=== PATIENT | male | born 1990 | race Caucasian/White ===

== ENCOUNTER → 2020-02-27 11:21 | Outpatient (BNVA) | payer OTHER, SELFPAY | PROVIDERS: PCP Nurse Practitioner Family; Visit Provider Surgery | DX: K44.9 Diaphragmatic hernia without obstruction or gangrene (principal); K21.9 Gastro-esophageal reflux disease without esophagitis; Z79.899 Other long term (current) drug therapy | CPT/HCPCS: 99202 ==

== ENCOUNTER → 2020-03-21 10:53 | Outpatient (BNVA) | payer OTHER, SELFPAY | PROVIDERS: PCP Nurse Practitioner Family; Visit Provider Physician Assistant | DX: Z76.89 Persons encountering health services in other specified circumstances (principal) ==

== ENCOUNTER 2020-04-03 10:58 | Outpatient (REF) | payer OTHER, SELFPAY ==
[2020-04-03 12:06] LABS: MANUAL DIFF FLAG NO
[2020-04-03 12:12] LABS: Basophils Absolute Auto 0.1 X10*3/uL (0.0-0.2); Basophils Percent Auto 0.8 % (0-2); Eosinophils Absolute Auto 0.2 X10*3/uL (0.0-0.4); Eosinophils Percent Auto 2.1 % (0-4); Hematocrit 43.1 % (42-52); Hemoglobin 14.3 g/dl (14.0-18.0); Imm Gran Abs Auto 0.02 X10*3/uL (0.00-0.03); Imm Gran Pct Auto 0.3 % (0.0-0.4); Lymphocytes Absolute Auto 3.5 X10*3/uL (1.2-4.9); Lymphocytes Percent Auto 45.5 % (20-40); Mean Corpuscular HGB Conc 33.2 g/dl (31.0-36.0); Mean Corpuscular Hemoglobin 30.4 pg (27.0-33.0); Mean Corpuscular Volume 91.7 fL (80-98); Mean Platelet Volume 10.2 fL (9.4-12.4); Monocytes Absolute Auto 0.6 X10*3/uL (0.1-1.2); Monocytes Percent Auto 7.6 % (2-11); Neutrophils Absolute Auto 3.4 X10*3/uL (2.0-8.3); Neutrophils Percent Auto 43.7 % (45-73); Platelet Count 345 X10*3/uL (160-400); White Blood Count 7.7 X10*3/uL (4.8-10.8)
[2020-04-03 12:41] LABS: Alanine Aminotransferase 23 U/L (0-40); Albumin Level 4.6 g/dL (3.5-5.0); Alkaline Phosphatase 79 U/L (39-117); Anion Gap 14 (12-20); Aspartate Amino Transferase 28 U/L (5-37); Bilirubin Total 0.5 mg/dL (0.0-1.0); Blood Urea Nitrogen 12 mg/dL (9-16); Calcium 9.8 mg/dL (8.4-10.2); Carbon Dioxide 26 mmol/L (22-29); Chloride 104 mmol/L (96-108); Estimated Glomerular Filt Rate > 60; Glucose Random 98 mg/dL (60-115); Potassium 4.2 mmol/l (3.3-5.1); Sodium 140 mmol/L (135-145); Total Protein 7.3 g/dL (6.5-8.0)
== END 2020-04-03 10:59 | disposition home or self-care (01) ==
LOC: HO.LAB 10:58
PROVIDERS: PCP Nurse Practitioner Family; Visit Provider Physician Assistant
DX: R74.01 Elevation of levels of liver transaminase levels (principal); R10.11 Right upper quadrant pain
CPT/HCPCS: 36415; 80053; 85025

== ENCOUNTER 2020-04-26 09:48 | Day surgery (SDC) | payer OTHER, SELFPAY ==
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
[2020-04-26 10:37] VITALS: BP 142/90; PULSE 71; RESP 18; TEMP 36.5; O2SAT 97; BMI 36.9
--- NOTE | 2020-04-26 10:55 | W.PM.OPN ---
Operative Note Operative Note Date of Service: 04/26/20 Narrative: Pre-op diagnosis: GERD, abdominal pain Post-op diagnosis: other (GERD, hiatal hernia, gastritis) Procedure: FLEXIBLE TRANSORAL UPPER GASTROINTESTINAL ENDOSCOPY WITH BIOPSIES Consent: Indications for the procedure and potential complications of bleeding, perforation, reaction to medications and missed diagnosis were discussed with the patient and informed consent was obtained. Instrument: Olympus GIF H 190 mid size upper endoscope Monitoring: Vital signs and clinical assessment, continuous EKG monitoring, Pulse oximetry, Carbon Dioxide monitoring and blood pressure monitoring were done throughout the procedure. Procedure: The patient was placed in the left lateral decubitis position and pre-procedure medications were administered and a bite block was placed. The endoscope was inserted into the mouth and advanced under direct vision to the third part of duodenum. A careful inspection was made as the upper endoscope was withdrawn including a retroflexed examination of the proximal stomach; Findings and interventions are described below. Findings: Larynx: Normal Esophagus: Circumferential folds in the mid esophagus - biopsied to check for EOE. GE junction at 38 cms, small hiatal hernia 38 to 40 cms. Two 1 cms tongues of suspected Christy - biopsied. Stomach: Mild gastric erythema. Biopsies were obtained. Grade 2 flap valve on retroflexed examination of the cardia. Duodenum: Normal bulb and descending duodenum Intervention: Biopsies as noted above Impression and Post Procedure Diagnosis: Endoscopy Findings: ESOPHAGUS: Circumferential folds in the mid esophagus - biopsied to check for EOE. GE junction at 38 cms, small hiatal hernia 38 to 40 cms. Two 1 cms tongues of suspected Christy - biopsied. STOMACH: Antral gastritis. Plan: Await pathology results. Add sucralfate twice daily for persistent symptoms despite esomeprazole twice daily. Patient to schedule a FU appointment in the GI Clinic with YOGESH Duckworth. Above findings were reviewed with the patient and GERD and Gastritis handouts were given in the discharge area Surgeon: Marc Hernández MD Anesthesia: MAC (Dr Lopez) Estimated blood loss (mL): 0 Pathology: other (A. gastric antrum, B. Distal esophagus, C. proximal esophagus) Condition: stable Disposition: PACU
--- NOTE | 2020-04-26 10:55 | MHC.SHP ---
Pre-Procedural Eval Section A The patient is an INPATIENT: No The History & Physical has been completed within 30 days and I have reviewed it.: No Section B Chief Complaint: reflux Details of Present Illness: GERD, abd pain, takes NSAIDS Relevant Family History (Specify if Yes): Yes Relevant Social History: None Present Medications: see Short Stay Collaborative assessment Medical History: Significant History (Bicuspid aortic valve Cervical stenosis of spinal canal Cubital tunnel syndrome Dyslipidemia Foraminal stenosis of cervical region GERD (gastroesophageal reflux disease) Hiatal hernia with gastroesophageal reflux Intractable migraine Lumbago with sciatica, right side Lumbar pain with radiation down ) History of Previous Operations: Relevant previous surgery/procedure and date(s) (Cubital tunnel syndrome on left Cubital tunnel syndrome on right H/O lumbar discectomy History of lumbar laminectomy History of tonsillectomy) Allergies: Allergies Allergy/AdvReac Type Severity Reaction Status Date / Time amoxicillin [Augmentin] Allergy Unknown rash; Verified 04/23/20 07:36 thoat swelled (childhood) clavulanic acid [Augmentin] Allergy Unknown rash; Verified 04/23/20 07:36 thoat swelled (childhood) Review of Systems Sugical H&P ROS: Negative: Constitution, Cardiovascular and Respiratory and Yes, Specify: Gastrointestinal (GERD, abdominal pain) Exam Surgical H&P Exam: Normal: Heart, Normal: Lungs, Normal: Extremities and Normal: Abdomen Plan Diagnosis/Plan: Unchanged I have reviewed the history and physical and performed a pertinent physical examination on my patient. No changes have occurred unless specified.
[2020-04-26] MEDS: Lactated Ringers 1,000 ML 100 ML IVCONT (11:07)
[2020-04-26 11:30] VITALS: BP 122/69; PULSE 70; RESP 16; TEMP 36.5; O2SAT 97
[2020-04-26 11:45] VITALS: BP 124/71; PULSE 61; RESP 20; TEMP 36.5; O2SAT 96
== END 2020-04-26 12:25 | disposition home or self-care (01) ==
PROVIDERS: PCP Nurse Practitioner Family; Visit Provider Internal Medicine Gastroenterology
PROC: 0DJ08ZZ Inspection of Upper Intestinal Tract, Via Natural or Artificial Opening Endoscopic (ICD-10-PCS; CPT 43235; principal; 2020-04-26 11:20)
DX: K21.9 Gastro-esophageal reflux disease without esophagitis (principal); R10.9 Unspecified abdominal pain; K29.70 Gastritis, unspecified, without bleeding; K44.9 Diaphragmatic hernia without obstruction or gangrene; Z79.1 Long term (current) use of non-steroidal anti-inflammatories (NSAID); Z88.0 Allergy status to penicillin
CPT/HCPCS: 43239; 88305; 88342; J3010

== ENCOUNTER → 2020-09-02 08:30 | Outpatient (BNVA) | payer OTHER, SELFPAY | PROVIDERS: PCP Nurse Practitioner Family; Visit Provider Physician Assistant ==

== ENCOUNTER → 2020-12-02 09:24 | Outpatient (BNVA) | payer OTHER, SELFPAY | PROVIDERS: PCP Nurse Practitioner Family; Visit Provider Physician Assistant ==

== ENCOUNTER 2021-12-15 11:16 | Outpatient (REF) | payer MEDICARE, OTHER, SELFPAY ==
[2021-12-15 16:40] LABS: Influenza A PCR NEGATIVE (Negative); Influenza B PCR NEGATIVE (Negative); Resp Syncy Virus RNA Qual PCR NEGATIVE (Negative); SARS COV2 PCR INHOUSE NEGATIVE (Negative)
== END 2021-12-15 11:17 | disposition home or self-care (01) ==
LOC: HO.LNP 11:16
PROVIDERS: Visit Provider Family Medicine
DX: J02.9 Acute pharyngitis, unspecified (principal); R09.81 Nasal congestion; Z20.822 Contact with and (suspected) exposure to COVID-19
CPT/HCPCS: 0241U

== ENCOUNTER 2022-04-01 17:22 | Emergency (ER) | payer MEDICARE, OTHER, SELFPAY ==
--- NOTE | ~2022-04-01 | CT_ITS ---
EXAMINATION: CT CERVICAL SPINE WITHOUT CONTRAST CLINICAL INFORMATION: Pain radiating to the left arm. COMPARISON: MR cervical spine 11/02/2019. TECHNIQUE: Contiguous axial imaging was performed of the cervical spine without IV contrast. Coronal and sagittal reformats were obtained at the acquisition workstation. This CT examination was performed using dose optimization techniques as appropriate, variously including the following: *Automated exposure control *Adjustment of mA and/or kV according to patient size (this includes techniques or standardized protocols for targeted exams where dose is matched to indication/reason for exam; i.e. extremities or head) *Use of iterative reconstruction technique DLP: 689 mGy-cm FINDINGS: The atlantooccipital and atlantoaxial articulations remain well aligned. Straightening of the normal cervical lordosis. Otherwise, there is anatomic alignment of the vertebral bodies and posterior elements. No evidence of acute fracture or subluxation. Again noted varying degrees of mild to moderate foraminal stenoses throughout the cervical spine with multilevel spinal canal stenosis secondary to spondylytic changes and congenital short pedicles, best characterized on the prior MR from 11/02/2019. There is no prevertebral soft tissue swelling. The thyroid gland and remaining cervical soft tissues are normal in appearance. There is a 2 mm nodule in the right apex (4:287) of uncertain significance. CT/CT cervical spine wo IV con IMPRESSION: 1. No acute cervical spine fracture or subluxation. 2. Redemonstration of varying degrees of mild to moderate foraminal stenosis and multilevel spinal canal stenosis secondary to spondylitic changes and congenitally short pedicles. For evaluation of myelopathy and cord signal abnormality correlation with an MR of the cervical spine is recommended if clinically deemed appropriate. 3. Incidental note is made of a 2 mm nodule in the right apex of uncertain significance. In patients younger than age 35, standard Fleischner Society recommendations for incidental pulmonary nodule follow-up do not apply as nodules in this age group are most likely to be infectious/inflammatory. Recommend clinical correlation with any risk factors to assess if follow-up of these nodules is clinically warranted.
[2022-04-01 17:30] VITALS: BP 144/80; PULSE 63; RESP 18; TEMP 36.7; O2SAT 98; BMI 36.6
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
--- NOTE | 2022-04-01 18:07 | ECG_ITS ---
Test Reason : NECK PAIN Blood Pressure : / mmHG Vent. Rate : 059 BPM Atrial Rate : 059 BPM P-R Int : 168 ms QRS Dur : 096 ms QT Int : 388 ms P-R-T Axes : 030 048 014 degrees QTc Int : 384 ms Sinus bradycardia Otherwise normal ECG No previous ECGs available Referred By: Darcie Lucas Electronically Signed By:CAROLEE REYNOSO MD
[2022-04-01] MEDS: diazePAM 2 MG TABLET 5 MG PO (18:25)
[2022-04-01 19:07] VITALS: BP 133/87; PULSE 59; RESP 20; TEMP 36.7; O2SAT 98
== END 2022-04-01 20:24 | disposition home or self-care (01) ==
PROVIDERS: Emergency Provider Emergency Medicine Emergency Medical Services; PCP Nurse Practitioner Family
DX: M48.02 Spinal stenosis, cervical region (principal)
CPT/HCPCS: 72125; 93005; 99284; 99285

== ENCOUNTER 2022-04-02 09:11 | Outpatient (REF) | payer MEDICARE, OTHER, SELFPAY ==
--- NOTE | 2022-04-02 09:20 | EMG_ITS ---
Bilateral median and ulnar motor and sensory studies were performed. Bilateral radial sensory studies were performed and paraspinal muscles were tested with a needle. IMPRESSION: This is an unremarkable study with no significant abnormality to suggest entrapment neuropathy or radiculopathy. MD NAYELY Espino/HETAL / [id number]
== END 2022-04-02 09:12 | disposition home or self-care (01) ==
LOC: HO.NEURO 09:11
PROVIDERS: PCP Nurse Practitioner Family; Visit Provider Nurse Practitioner Family
DX: M50.90 Cervical disc disorder, unspecified, unspecified cervical region (principal); R20.0 Anesthesia of skin
CPT/HCPCS: 95886; 95911

== ENCOUNTER 2022-07-19 19:37 | Emergency (ER) | payer MEDICARE, OTHER, SELFPAY ==
--- NOTE | ~2022-07-19 | XR_ITS ---
EXAMINATION: XR CHEST CLINICAL INFORMATION: Chest pain. Palpitations. COMPARISON: None available. TECHNIQUE: Frontal view of the chest was obtained. FINDINGS: Cardiomediastinal silhouette is normal. No abnormal tracheal deviation. The lungs are mildly hypoexpanded. No focal consolidation, changes of congestion, pleural effusions or pneumothorax are seen. Visualized osseous structures and upper abdomen are grossly unremarkable. XR/XR chest 1V IMPRESSION: Mildly hypoexpanded lungs. No acute pulmonary process.
[2022-07-19 19:39] VITALS: BP 128/75; PULSE 65; RESP 18; TEMP 36.6; O2SAT 97; BMI 38.7
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
--- NOTE | 2022-07-19 19:40 | ECG_ITS ---
Test Reason : CHEST PAIN Blood Pressure : / mmHG Vent. Rate : 062 BPM Atrial Rate : 062 BPM P-R Int : 148 ms QRS Dur : 100 ms QT Int : 386 ms P-R-T Axes : 026 048 011 degrees QTc Int : 391 ms Normal sinus rhythm Normal ECG When compared with ECG of 01-APR-2022 19:20, No significant change was found Referred By: Darcie Lucas Electronically Signed By:BERE SARGENT
[2022-07-19 20:09] LABS: Basophils Absolute Auto 0.1 X10*3/uL (0.0-0.2); Basophils Percent Auto 0.7 % (0-2); Eosinophils Absolute Auto 0.1 X10*3/uL (0.0-0.4); Eosinophils Percent Auto 1.3 % (0-4); Hematocrit 41.6 % (42.0-52.0); Hemoglobin 14.2 g/dl (14.0-18.0); Imm Gran Abs Auto 0.04 X10*3/uL (0.00-0.03); Imm Gran Pct Auto 0.4 % (0.0-0.4); Lymphocytes Absolute Auto 5.3 X10*3/uL (1.2-4.9); Lymphocytes Percent Auto 52.1 % (20-40); MANUAL DIFF FLAG SCAN; Mean Corpuscular HGB Conc 34.1 g/dl (31.0-36.0); Mean Corpuscular Hemoglobin 30.3 pg (27.0-33.0); Mean Corpuscular Volume 88.9 fL (80.0-98.0); Monocytes Absolute Auto 0.8 X10*3/uL (0.1-1.2); Monocytes Percent Auto 7.8 % (2-11); Neutrophils Absolute Auto 3.9 x10*3/uL (2.0-8.3); Neutrophils Percent Auto 37.7 % (45-73); Platelet Count 330 X10*3/uL (160-400); Red Blood Count 4.68 X10*6/uL (4.60-5.80); Red Cell Distribution Width 13.2 % (11.0-16.0); SCAN SMEAR FLAG 1; White Blood Count 10.2 X10*3/uL (4.8-10.8)
--- OUTSIDE RECORDS SUMMARY | 2022-07-19 20:14 | XMS_ITS | Continuity of Care Document ---
Author Name Unknown Organization [facility] ter Address [address] [place] [id number]- Care Team Providers Care Industrial Services Worker Name Role Phone Es JOHNSON, Jearld Ibarra Primary Care Physician Encounter [facility] Date(s): 06/14/21 - 06/14/[address] [address]- Discharge Disposition: A-D/C Home Attending Physician: Ritchie Wills MD Admitting Physician: Ritchie Wills MD Referring Physician: Not on Staff, Referring MD Allergies, Adverse Reactions, Alerts Substance Reaction Severity Status Augmentin throat swelled age 2 Active Medications baclofen 10 mg oral tablet 10 mg, 1, tablet, By Mouth, 3 times a day, # 90 tablet, Refills 1, Tot. Refills 1, Maintenance, 04/07/19 15:09:00 EST, [id number], 175.26, cm, 04/07/19 14:43:00 EST, Height, 113.1, kg, 02/23/19 13:30:... Start Date: 04/07/19 Stop Date: 06/06/19 Status: Ordered Esomeprazole Refills 0, Maintenance, 10/24/19 14:14:00 EDT Start Date: 10/24/19 Status: Ordered Lyrica 20 mg/mL oral solution 2.5 mL = 50 mg, By Mouth, 3 times a day, 0 Refills, Maintenance, 10/24/19 14:13:00 EDT Start Date: 10/24/19 Status: Ordered Paroxetine = 20 mg, By Mouth, Daily at bedtime, 0 Refills, Maintenance, 02/27/21 13:21:00 EST, Partial fill upon patient request if the prescription is for a schedule II opioid drug. Start Date: 02/27/21 Status: Ordered Sumatriptan = 100 mg, By Mouth, PRN as needed for migraine headache, 0 Refills, Maintenance, 10/14/17 14:55:25 EDT Start Date: 10/14/17 Status: Ordered Problem List Condition Effective Dates Status Health Status Inform ant Obese class II(Confirmed) Active Results Radiology Reports * Exam Date Time Procedure Performing Provider Status 06/14/21 7:13 PM Chest Portable Pat Orta; Auth (Verified) Notes: (Chest Portable) Reason For Exam: Shortness of Breath RESULT: Chest Portable Chest Portable Hx of Present Illness: SOB; Reason: Shortness of Breath; Clinical Question(s): Pneumonia COMPARISON: 03/04/2021. FINDINGS: LINES AND TUBES: None. LUNGS AND PLEURA: There is pulmonary vascular congestion. There are patchy opacities at the lower lung rodriguez. There is no evidence of a pneumothorax or pleural effusion. HEART, MEDIASTINUM AND NORMA: Heart is normal in size. Normal upper mediastinal and hilar contour. BONES AND SOFT TISSUES: No acute abnormality. IMPRESSION: Pulmonary vascular congestion with bilateral patchy opacities of the lower lung rodriguez which may represent atelectasis versus airspace disease. WSN: [id number] Ordering Physician: Ana M Elizondo Dictated By: Franci Garcia MD Dictated Date/Time: 06/14/21 7:18 pm Reviewed By: Franci Garcia MD Signed By: Franci Garcia MD Signed Date/Time: 06/14/21 7:18 pm Transcribed By: MACARIO Transcribed Date/Time: 06/14/21 7:16 pm Vital Signs Most recent to oldest [Reference Range]: 1 2 3 Oxygen Saturation [94-100 %] 98 % (06/14/21 8:24 PM) 98 % (06/14/21 5:46 PM) 99 % (06/14/21 5:41 PM) Pulse Rate [55-90 bpm] 75 bpm (06/14/21 8:24 PM) 96 bpm *H* (06/14/21 5:46 PM) 102 bpm *H* (06/14/21 5:41 PM) Blood Pressure [90-138/55-84 mm Hg] 108/65mm Hg (06/14/21 8:24 PM) 131/68mm Hg (06/14/21 5:46 PM) Respiratory Rate [16-30 br/min] 21 br/min (06/14/21 8:24 PM) 20 br/min (06/14/21 5:46 PM) Temperature [96.8-100.4 DegF] 99.8 DegF (06/14/21 8:24 PM) 102.4 DegF *H* (06/14/21 5:46 PM) Mode of Delivery (Oxygen) Room air (06/14/21 8:24 PM) Room air (06/14/21 5:46 PM) Room air (06/14/21 5:41 PM) Blood pressure sites Arm, right (06/14/21 8:24 PM) Arm, right (06/14/21 5:46 PM) Temperature Route Oral (06/14/21 8:24 PM) Oral (06/14/21 5:46 PM) Dry Weight 113.8 kg (06/14/21 8:24 PM) 113.8 kg (06/14/21 6:23 PM) 113.8 kg (06/14/21 5:46 PM) Dry Weight Obtained Via Patient/family s tated (06/14/21 5:46 PM) Social History Social History Type Response Smoking Status Never smoker entered on: 09/23/17 Sex Male
--- OUTSIDE RECORDS SUMMARY | 2022-07-19 20:14 | XMS_ITS | Continuity of Care Document ---
Author Name Unknown Organization [facility] ter Address [address] [place] [address]- Care Team Providers Care Hospital Coordinator Name Role Phone Es JOHNSON, Jerald Ibarra Primary Care Physician [phone] [place] [facility] [place]/23/[place] - 02/23/[address] [address]- [facility] Encounter Diagnosis Headache(Final) - 02/23/19 Discharge Disposition: A-D/C Home Attending Physician: Jeff García MD Admitting Physician: Jeff García MD Referring Physician: Not on Staff, Referring MD Allergies, Adverse Reactions, Alerts Substance Reaction Severity Status Augmentin throat swelled age 2 Active Medications amitriptyline 50 mg oral tablet 1 tablet = 50 mg, By Mouth, Daily at bedtime, # 30 tablet, 0 Refills, Maintenance, 10/14/17 14:56:14 EDT, Tablet Start Date: 10/14/17 Status: Ordered atorvastatin 20 mg oral tablet 1 tablet = 20 mg, By Mouth, Daily, # 30 tablet, 0 Refills, Maintenance, 02/03/19 13:44:06 EST, Tablet Start Date: 02/03/19 Status: Ordered baclofen 10 mg oral tablet 5 mg, 0.5, tablet, By Mouth, 3 times a day, start taking HS and gradually go up to tid, # 45 tablet, Refills 0, Tot. Refills 0, Maintenance, 02/03/19 13:59:56 EST, Route to Pharmacy Electronically, [id number], [facility] Start Date: 02/03/19 Stop Date: 03/05/19 Status: Ordered diclofenac sodium 50 mg oral delayed release tablet 1 tablet = 50 mg, By Mouth, 3 times a day, with food, # 90 tablet, 3 Refills, Maintenance, 02/03/1913:59:13 EST Start Date: 02/03/19 Stop Date: 06/03/19 Status: Ordered Fioricet Tablet By Mouth, Every 4 hours, 0 Refills, Maintenance, 02/03/19 13:44:58 EST Start Date: 02/03/19 Status: Ordered Omeprazole By Mouth, Daily, 0 Refills, Maintenance, 02/03/19 13:43:55 EST Start Date: 02/03/19 Status: Ordered oxyCODONE 5 mg oral tablet 5 mg, 1, tablet, By Mouth, Every 6 hours, PRN, # 5 tablet, Refills 0, Tot. Refills 0, Maintenance, for pain, 12/14/18 15:51:46 EDT, Route to Pharmacy Electronically, NCPDP_[id number], [facility], Partial fill upon patient request Start Date: 12/14/18 Status: Ordered Pantoprazole Daily, 0 Refills, Maintenance, 12/12/18 16:35:53 EDT Start Date: 12/12/18 Status: Ordered Sumatriptan = 100 mg, By Mouth, PRN as needed for migraine headache, 0 Refills, Maintenance, 10/14/17 14:55:25 EDT Start Date: 10/14/17 Status: Ordered topiramate 25 mg oral capsule, extended release 1 capsule = 25 mg, By Mouth, Daily, # 30 capsule, 0 Refills, Maintenance, 02/03/19 13:42:44 EST, ERCapsule Start Date: 02/03/19 Status: Ordered Tylenol 8 Hour Caplet = 1,300 mg, By Mouth, Every 8 hours, 0 Refills, Maintenance, 02/03/19 13:43:32 EST Start Date: 02/03/19 Status: Ordered Problem List No Known Problems Vital Signs Most recent to oldest [Reference Range]: 1 2 3 Weight 113.1 kg (02/23/19 1:30 PM) 113.1 kg (02/23/19 10:21 AM) Oxygen Saturation [94-100 %] 100 % (02/23/19 1:30 PM) 99 % (02/23/19 10:21 AM) 100 % (02/23/19 10:18 AM) Pulse Rate [55-90 bpm] 55 bpm (02/23/19 1:30 PM) 54 bpm *L* (02/23/19 10:21 AM) 78 bpm (02/23/19 10:18 AM) Blood Pressure [90-138/55-84 mm Hg] 123/75mm Hg (02/23/19 1:30 PM) 136/81mm Hg (02/23/19 10:21 AM) Respiratory Rate [16-30 br/min] 16 br/min (02/23/19 1:30 PM) 18 br/min (02/23/19 10:21 AM) Temperature [96.8-100.4 DegF] 98.5 DegF (02/23/19 1:30 PM) 98.3 DegF (02/23/19 10:21 AM) Mode of Delivery (Oxygen) Room air (02/23/19 1:30 PM) Room air (02/23/19 10:21 AM) Nasal cannula (02/23/19 10:18 AM) Blood pressure sites Arm, left (02/23/19 1:30 PM) Arm, right (02/23/19 10:21 AM) Temperature Route Oral (02/23/19 1:30 PM) Oral (02/23/19 10:21 AM) Dry Weight 113.1 kg (02/23/19 1:30 PM) 113.1 kg (02/23/19 10:21 AM) Social History Social History Type Response Smoking Status Never smoker entered on: 09/23/17 Sex Male
--- OUTSIDE RECORDS SUMMARY | 2022-07-19 20:14 | XMS_ITS | Continuity of Care Document ---
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 Refills 1, Maintenance, 04/07/19 15:09:00 EST, Route to Pharmacy Electronically, [facility] #[id number], 175.26, cm, 04/07/19 14:43:00 EST, Height, 113.1, kg, 02/23/19 13:30:... Start Date: 04/07/19 Stop Date: 06/06/19 Status: Ordered Fioricet Tablet By Mouth, Every 4 hours, 0 Refills, Maintenance, 02/03/19 13:44:58 EST Start Date: 02/03/19 Status: Ordered nabumetone 750 mg oral tablet 2 tablet = 1,500 mg, By Mouth, Daily, # 60 tablet, 1 Refills, Maintenance, 04/07/19 15:10:00 EST, Tablet, [facility] #[id number], 175.26, cm, 04/07/19 14:43:00 EST, Height, 113.1, kg, 02/23/19 13:30:00 EST, Dry Weight Start Date: 04/07/19 Status: Ordered Omeprazole By Mouth, Daily, 0 Refills, Maintenance, 02/03/19 13:43:55 EST Start Date: 02/03/19 Status: Ordered oxyCODONE 5 mg oral tablet 5 mg, 1, tablet, By Mouth, Every 6 hours, PRN, # 5 tablet, Refills 0, Tot. Refills 0, Maintenance, for pain, 12/14/18 15:51:46 EDT, Route to Pharmacy Electronically, NCPDP_[id number], [facility], Partial fill upon patient request Start Date: 12/14/18 Status: Ordered Pantoprazole Daily, 0 Refills, Maintenance, 12/12/18 16:35:53 EDT Start Date: 12/12/18 Status: Ordered Sumatriptan = 100 mg, By Mouth, PRN as needed for migraine headache, 0 Refills, Maintenance, 10/14/17 14:55:25 EDT Start Date: 10/14/17 Status: Ordered Topamax 50 mg oral tablet 1 tablet = 50 mg, By Mouth, 2 times a day, plese cancel the previous 25 mg script, # 60 tablet, 0 Refills, Maintenance, 06/15/19 9:39:00 EDT, Tablet, [facility] #[id number], 175.26, cm, 05/25/2009:52:00 EDT, Height, 113.1, kg, 02/23/19 13:30:00... Start Date: 06/15/19 Status: Ordered Tylenol 8 Hour Caplet = 1,300 mg, By Mouth, Every 8 hours, 0 Refills, Maintenance, 02/03/19 13:43:32 EST Start Date: 02/03/19 Status: Ordered zonisamide 25 mg oral capsule 1 capsule = 25 mg, By Mouth, 2 times a day, 0 Refills, Maintenance, 04/07/19 14:47:00 EST Start Date: 04/07/19 Status: Ordered Problem List No Chronic Problems Diagnosis Diagnosis Type Effective Dates Health Status Cl inical Service Informant Failed back syndrome of lumbar spine Discharge Diagnosis 06/15/19 Social History Social History Type Response Smoking Status Never smoker entered on: 09/23/17 Sex Male
--- OUTSIDE RECORDS SUMMARY | 2022-07-19 20:14 | XMS_ITS | Continuity of Care Document ---
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 Start Date: 04/07/19 Stop Date: 06/06/19 Status: Ordered Fioricet Tablet By Mouth, Every 4 hours, 0 Refills, Maintenance, 02/03/19 13:44:58 EST Start Date: 02/03/19 Status: Ordered nabumetone 750 mg oral tablet 2 tablet = 1,500 mg, By Mouth, Daily, # 60 tablet, 1 Refills, Maintenance, 04/07/19 15:10:00 EST, Tablet, [facility] #[id number], 175.26, cm, 04/07/19 14:43:00 EST, Height, 113.1, [...] 12/14/18 15:51:46 EDT, Route to Pharmacy Electronically, NCPDP_[id number], [facility], Partial fill upon patient [...] 0 Refills, Maintenance, 06/15/19 9:39:00 EDT, Tablet, [facility] #[id number], 175.26, cm, 05/25/2009:52:00 EDT, Height, 113.1, kg, [...] back syndrome of lumbar spine Discharge Diagnosis 07/18/19 Social History Social History Type Response Smoking Status Never smoker entered on: 09/23/17 Sex Male
--- OUTSIDE RECORDS SUMMARY | 2022-07-19 20:14 | XMS_ITS | Continuity of Care Document ---
Author Name Unknown Organization [facility] Address [address] [place] [address]- Care Team Providers Care E Business Manager Name Role Phone Jerald Suggs NP Primary Care Physician [place] [facility] [place] 05/26[place] - 06/02/19 [facility] [address] [place] [address]- [facility] Attending Physician: Hannah MAX, Jason Malone Referring Physician: Jerald Suggs NP Allergies, Adverse [...] 04/07/19 15:09:00 EST, Route to Pharmacy Electronically, [facility] #[id number], 175.26, cm, 04/07/19 14:43:00 EST, Height, 113.1, kg, 02/23/19 13:30:... Start Date: 04/07/19 Stop Date: 06/06/19 Status: Ordered Fioricet Tablet By Mouth, Every 4 hours, 0 Refills, Maintenance, 02/03/19 13:44:58 EST Start Date: 02/03/19 Status: Ordered nabumetone 750 mg oral tablet 2 tablet = 1,500 mg, By Mouth, Daily, # 60 tablet, 1 Refills, Maintenance, 04/07/19 15:10:00 EST, Tablet, [facility] #[id number], 175.26, cm, 04/07/19 14:43:00 EST, Height, 113.1, [...] 12/14/18 15:51:46 EDT, Route to Pharmacy Electronically, NCPDP_[id number], [facility], Partial fill upon patient request Start Date: 12/14/18 Status: Ordered Pantoprazole Daily, 0 Refills, Maintenance, 12/12/18 16:35:53 EDT Start Date: 12/12/18 Status: Ordered Sumatriptan = 100 mg, By Mouth, PRN as needed for migraine headache, 0 Refills, Maintenance, 10/14/17 14:55:25 EDT Start Date: 10/14/17 Status: Ordered Topamax 25 mg oral tablet 1 tablet = 25 mg, By Mouth, 2 times a day, 1 po qhs x 7 days then bid., # 60 tablet, 3 Refills, Maintenance, 05/26/19 15:19:00 EDT, [facility] #[id number], 175.26, cm, 05/26/19 10:52:00 EDT, Height, 113.1, kg, 02/23/19 13:30:00 EST, Dry Weight Start Date: 05/26/19 Status: Ordered topiramate 25 mg oral capsule, [...] Date: 04/07/19 Status: Ordered Problem List No Known Problems Vital Signs Most recent to oldest [Reference Range]: 1 Height 175.26 cm (05/26/19 10:52 AM) Weight 112.1 kg (05/26/19 10:52 AM) Oxygen Saturation [94-100 %] 98 % (05/26/19 10:52 AM) Pulse Rate [55-90 bpm] 86 bpm (05/26/19 10:52 AM) Body Mass Index [18.5-24.99] 36.5 *>HHI* (05/26/19 10:52 AM) Blood Pressure [90-138/55-84 mm Hg] 143/ 81mm Hg *H* (05/26/19 10:52 AM) Temperature [96.8-100.4 DegF] 98.3 DegF (05/26/19 10:52 AM) Blood pressure sites Arm, left (05/26/19 10:52 AM) Temperature Route Temporal (05/26/19 10:52 AM) Social History Social History Type Response Smoking Status Never smoker entered on: 09/23/17 Sex Male
--- OUTSIDE RECORDS SUMMARY | 2022-07-19 20:14 | XMS_ITS | Continuity of Care Document ---
Author Name Unknown Organization [facility] Jeannette sridhar Address [address] [place] [address] ve [address] [place] [address]- Care Team Providers Care Casing Builder Name Role Phone Es JOHNSON, Jerald Ibarra Primary Care Physician [place] [facility] [place]26/19 [facility] [address] [place] [address]- [facility] Attending Physician: Brook MAX, Pacheco Malone Allergies, Adverse Reactions, Alerts Substance Reaction Severity [...] 04/07/19 15:09:00 EST, Route to Pharmacy Electronically, [facility] #[id number], 175.26, cm, 04/07/19 14:43:00 EST, Height, 113.1, kg, 02/23/19 13:30:... Start Date: 04/07/19 Stop Date: 06/06/19 Status: Ordered Fioricet Tablet By Mouth, Every 4 hours, 0 Refills, Maintenance, 02/03/19 13:44:58 EST Start Date: 02/03/19 Status: Ordered nabumetone 750 mg oral tablet 2 tablet = 1,500 mg, By Mouth, Daily, # 60 tablet, 1 Refills, Maintenance, 04/07/19 15:10:00 EST, Tablet, [facility] #[id number], 175.26, cm, 04/07/19 14:43:00 EST, Height, 113.1, [...] 12/14/18 15:51:46 EDT, Route to Pharmacy Electronically, NCPDP_[id number], [facility], Partial fill upon patient [...] 0 Refills, Maintenance, 06/15/19 9:39:00 EDT, Tablet, [facility] #[id number], 175.26, cm, 05/25/2009:52:00 EDT, Height, 113.1, kg, [...] Status: Ordered Problem List No Known Problems Social History Social History Type Response Smoking Status Never smoker entered on: 09/23/17 Sex Male
--- OUTSIDE RECORDS SUMMARY | 2022-07-19 20:14 | XMS_ITS | Continuity of Care Document ---
Author Name Unknown Organization [facility] ter Address [address] [place] [address]- Care Team Providers Care Permanent Waver Name Role Phone Es JOHNSON, Jerald Ibarra Primary Care Physician [phone] [place] [facility] [place]/05/21 - 03/06/[address] [address]- Discharge Disposition: A-D/C Home Attending Physician: Tye Parra MD Admitting Physician: Joce Saunders MD Referring Physician: Not on Staff, Referring MD Allergies, Adverse Reactions, Alerts Substance Reaction Severity Status Augmentin throat swelled age 2 Active Medications acetaminophen-oxyCODONE 325 mg-5 mg oral tablet 2, tablet, By Mouth, Every 4 hours, PRN, # 30 tablet, Refills 0, Tot. Refills 0, Acute, Pain , Moderate, 03/10/21 11:44:00 EST, 03/03/21 11:44:00 EST, Route to Pharmacy Electronically, [facility], Partial fill upon patient request... Start Date: 03/03/21 Stop Date: 03/10/21 Status: Ordered baclofen 10 mg oral tablet 10 mg, 1, tablet, By Mouth, 3 times a day, # 90 tablet, Refills 1, Tot. Refills 1, Maintenance, 04/07/19 15:09:00 EST, Route to Pharmacy Electronically, [facility] #[id number], 175.26, cm, 04/07/19 14:43:00 EST, Height, 113.1, kg, 02/23/19 13:30:... Start Date: 04/07/19 Stop Date: 06/06/19 Status: Ordered Dilaudid 2 mg oral tablet 1 mg, Tablet, By Mouth, Every 4 hours, PRN for Pain , Severe, Routine, 03/06/21 10:12:00 EST Start Date: 03/06/21 Stop Date: 03/07/21 Status: Discontinued Dilaudid 2 mg oral tablet 0.5 tablet = 1 mg, By Mouth, Every 6 hours, PRN Pain , Severe, for 4 days, # 8 tablet, 0 Refills, Acute 03/10/21 12:09:00 EST, 03/06/21 12:09:00 EST, Tablet, [facility] #[id number], Partial fillupon patient request if the prescription is for a s... Start Date: 03/06/21 Stop Date: 03/10/21 Status: Ordered docusate-senna 50 mg-187 mg oral tablet 2 tablet, By Mouth, 2 times a day, PRN Constipation, for 7 days, # 20 tablet, 0 Refills, Acute 03/13/21 12:08:00 EST, 03/06/21 12:08:00 EST, Tablet, [facility] #[id number], Partial fill upon patient request if the prescription is for a schedule I... Start Date: 03/06/21 Stop Date: 03/13/21 Status: Ordered Esomeprazole Refills 0, Maintenance, 10/24/19 14:14:00 EDT Start Date: 10/24/19 Status: Ordered Lyrica 20 mg/mL oral solution 2.5 mL = 50 mg, By Mouth, 3 times a day, 0 Refills, Maintenance, 10/24/19 14:13:00 EDT Start Date: 10/24/19 Status: Ordered MiraLax oral powder for reconstitution = 17 Gm, By Mouth, Daily, PRN Constipation, for 7 days, dissolve in water before taking, # 527 Gm, 0 Refills, Acute 03/13/21 12:08:00 EST, 03/06/21 12:08:00 EST, REC Powder, [facility] #[id number], Partial fill upon patient request if the prescri... Start Date: 03/06/21 Stop Date: 03/13/21 Status: Ordered oxyCODONE 5 mg oral tablet 5 mg, Tablet, By Mouth, Every 6 hours, PRN for Pain , Mild, Routine, 03/05/21 7:48:00 EST Start Date: 03/05/21 Stop Date: 03/07/21 Status: Discontinued Paroxetine = 20 mg, By Mouth, Daily [...] Exam Date Time Procedure Performing Provider Status 03/04/21 11:42 PM Thoracic Spine 2 Views Rachel Garay; Auth (Verified) Notes: (Thoracic Spine 2 Views) Reason For Exam: With Pain;Localization Films RESULT: Thoracic Spine 2 Views Thoracic Spine 2 Views Hx of Present Illness: Pt c o cervical thoracic spine radiating to b l ribs, worsening with movement and respiration s p laminectomy and spinal cord stimulator insertion yesterday. Finds relief by lying on side.; Reason: Localization Films; With Pain; Clinical Question(s): Position Fixation; new spi nal stimulator. Confirming placement. COMPARISON: None. FINDINGS: No bone lesions or fractures. Normal disc configuration. Pulmonary findings are better characterized on concurrently obtained chest radiograph. Posterior spinal stimulator noted at the level of T9-T10. IMPRESSION: No acute fracture or dislocation. Pulmonary findings are better characterized on concurrently obtained chest chest radiograph. Posterior spinal stimulator noted at the level of T9-T10. I have personally reviewed the images and I agree with this report. WSN: [id number] Ordering Physician: Harry Wall Dictated By: Magdy Cosme DO Dictated Date/Time: 03/04/21 11:49 p Reviewed By: Maico Perry MD Signed By: Maico Perry MD Signed Date/Time: 03/04/21 11:54 pm Transcribed By: MACARIO Transcribed Date/Time: 03/04/21 11:49 pm * Exam Date Time Procedure Performing Provider Status 03/04/21 11:42 PM Lumbar Spine 2 or 3 Views Aisha Arauz; Auth (Verified) Notes: (Lumbar Spine 2 or 3 Views) Reason For Exam: with Pain;Localization Films RESULT: Lumbar Spine 2 or 3 Views Lumbar Spine 2 Views Hx of Present Illness: Pt c o cervical thoracic spine radiating to b l ribs, worsening with movement and respiration s p laminectomy and spinal cord stimulator insertion yesterday. Finds relief by lying on side.; Reason: Localization Films; with Pain; Clinical Question(s): Position Fixation; new spi nal stimulator. Confirming placement. COMPARISON: MRI lumbar spine 08/11/2019. FINDINGS: No bone lesions or fractures. Normal disc configuration. Normal alignment. No spondylolysis or spondylolisthesis. Mild stool retention throughout the visualized colon. Partially visualized thoracic spinal stimulator with the battery pack in the posterior left subcutaneous tissue. IMPRESSION: No acute fracture or dislocation. I have personally reviewed the images and I agree with this report. WSN: [id number] Ordering Physician: Harry Wall Dictated By: Magdy Cosme DO Dictated Date/Time: 03/04/21 11:49 p Reviewed By: Maico Perry MD Signed By: Maico Perry MD Signed Date/Time: 03/04/21 11:54 pm Transcribed By: MACARIO Transcribed Date/Time: 03/04/21 11:47 pm * Exam Date Time Procedure Performing Provider Status 03/04/21 11:42 PM Chest 2 Views Frontal and Lat Wanda Arauz; Auth (Verified) Notes: (Chest 2 Views Frontal and Lat) Reason For Exam: Pain;Other: RESULT: Chest 2 Views Frontal and Lat Chest 2 Views Frontal and Lat Hx of Present Illness: Pt c o cervical thoracic spine radiating to b l ribs, worsening with movement and respiration s p laminectomy and spinal cord stimulator insertion yesterday. Finds relief by lying on side.; Reason: Other:; Pain; Clinical Question(s): Other:; Fracture, pneumothorax, pulmonary contusion COMPARISON: 09/17/2015 FINDINGS: Patchy airspace disease in the left lower lobe. Right infrahilar airspace disease. IMPRESSION: Left lower lobe and right infrahilar airspace disease could be secondary to atelectasis but cannot exclude bilateral lower lobe pneumonia WSN: [id number] Ordering Physician: Harry Wall Dictated By: Rodríguez Barraza MD Dictated Date/Time: 03/04/21 11:46 p Reviewed By: Rodríguez Barraza MD Signed By: Rodríguez Barraza MD Signed Date/Time: 03/04/21 11:46 pm Transcribed By: MACARIO Transcribed Date/Time: 03/04/21 11:45 pm Vital Signs Most recent to oldest [Reference Range]: 1 2 3 Height 175.26 cm (03/06/21 12:10 PM) 175.26 cm (03/06/21 8:28 AM) 175.26 cm (03/06/21 5:20 AM) Weight 122.1 kg (03/05/21 5:49 AM) 122.1 kg (03/05/21 4:53 AM) Oxygen Saturation [94-100 %] 98 % (03/06/21 12:10 PM) 97 % (03/06/21 8:28 AM) 96 % (03/06/21 5:20 AM) Pulse Rate [55-90 bpm] 82 bpm (03/06/21 12:10 PM) 76 bpm (03/06/21 8:28 AM) 88 bpm (03/06/21 5:20 AM) Body Mass Index [18.5-24.99] 39.75 *>HHI* (03/05/21 5:49 AM) Blood Pressure [90-138/55-84 mm Hg] 111/69mm Hg (03/06/21 12:10 PM) 128/78mm Hg (03/06/21 8:28 AM) 109/68mm Hg (03/06/21 5:20 AM) Respiratory Rate [16-30 br/min] 18 br/min (03/06/21 1:58 PM) 18 br/min (03/06/21 12:10 PM) 16 br/min (03/06/21 10:21 AM) Temperature [96.8-100.4 DegF] 97.8 DegF (03/06/21 12:10 PM) 97.5 DegF (03/06/21 8:28 AM) 98.5 DegF (03/06/21 5:20 AM) Liters per Minute 3 L/min (03/05/21 5:49 AM) 3 L/min (03/05/21 4:53 AM) 2 L/min (03/05/21 3:46 AM) Mode of Delivery (Oxygen) Room air (03/06/21 12:10 PM) Room air (03/06/21 8:28 AM) Room air (03/06/21 5:20 AM) Blood pressure sites Arm, left (03/06/21 12:10 PM) Arm, left (03/06/21 8:28 AM) Arm, left (03/06/21 5:20 AM) Temperature Route Temporal (03/06/21 12:10 PM) Temporal (03/06/21 8:28 AM) Temporal (03/06/21 5:20 AM) Dry Weight 122.1 kg (03/05/21 5:49 AM) Social History Social History Type Response Smoking Status Never smoker entered on: 09/23/17 Sex Male
--- OUTSIDE RECORDS SUMMARY | 2022-07-19 20:14 | XMS_ITS | Continuity of Care Document ---
Author Name Unknown Organization [facility] ter Address [address] [place] [address]- Care Team Providers Care Marketing Proposal Specialist Name Role Phone Es JOHNSON, Jerald Ibarra Primary Care Physician En[place] [facility] [place] Date(s): 03/06/21 - 04/05/[address] [address]- Attending Physician: Not on Staff, Attending MD Admitting Physician: Not on Staff, Admitting MD Referring Physician: Not on Staff, Referring MD Allergies, Adverse Reactions, Alerts Substance Reaction Severity Status Augmentin throat swelled age 2 Active Medications baclofen 10 mg oral tablet 10 mg, 1, tablet, By Mouth, 3 times a day, # 90 tablet, Refills 1, Tot. Refills 1, Maintenance, 04/07/19 15:09:00 EST, [id number], 175.26, cm, 04/07/19 14:43:00 EST, Height, 113.1, [...] Status Inform ant Obese class II(Confirmed) Active Social History Social History Type Response Smoking Status Never smoker entered on: 09/23/17 Sex Male
--- OUTSIDE RECORDS SUMMARY | 2022-07-19 20:14 | XMS_ITS | Continuity of Care Document ---
Author Name Unknown Organization [facility] Jeannette sridhar Address [address] [place], [place] [address]i ve [address] [place] [address]- Care Team Providers Care Juice Packaging Machines Setter Name Role Phone Es JOHNSON, Jerald Ibarra Primary Care Physician [place] [facility] [place](s): 08/18/19 - 11/05/19 [facility] [address] [place] [address]- [facility] Attending Physician: Pacheco Doe MD Referring Physician: Jerald Suggs NP Allergies, Adverse [...] 04/07/19 15:09:00 EST, Route to Pharmacy Electronically, [facility] #[id number], 175.26, cm, 04/07/19 14:43:00 EST, Height, 113.1, kg, 02/23/19 13:30:... Start Date: 04/07/19 Stop Date: 06/06/19 Status: Ordered Citalopram By Mouth, Daily, 0 Refills, Maintenance, 10/24/19 14:14:00 EDT Start Date: 10/24/19 Status: Ordered Esomeprazole Refills 0, Maintenance, 10/24/19 14:14:00 EDT Start Date: 10/24/19 Status: Ordered Fioricet Tablet By Mouth, Every 4 hours, 0 Refills, Maintenance, 02/03/19 13:44:58 EST Start Date: 02/03/19 Status: Ordered Lyrica 20 mg/mL oral solution 2.5 mL = 50 mg, By Mouth, 3 times a day, 0 Refills, Maintenance, 10/24/19 14:13:00 EDT Start Date: 10/24/19 Status: Ordered nabumetone 750 mg oral tablet 2 tablet = 1,500 mg, By Mouth, Daily, # 60 tablet, 1 Refills, Maintenance, 04/07/19 15:10:00 EST, Tablet, [facility] #[id number], 175.26, cm, 04/07/19 14:43:00 EST, Height, 113.1, [...] 12/14/18 15:51:46 EDT, Route to Pharmacy Electronically, NCPDP_[id number], [facility], Partial fill upon patient [...] 0 Refills, Maintenance, 06/15/19 9:39:00 EDT, Tablet, [facility][id number], 175.26, cm, 05/25/2009:52:00 EDT, Height, 113.1, kg, [...]
--- OUTSIDE RECORDS SUMMARY | 2022-07-19 20:14 | XMS_ITS | Continuity of Care Document ---
Author Name Unknown Organization [facility] Address [address] [place] [address]- Care Team Providers Care Track Layer Name Role Phone Es JOHNSON, Jerald Ibarra Primary Care Physician [place] [facility] [place] 12/10/19 [facility] [address] [place] [address] [facility] Attending Physician: Jerald Morales MD Admitting Physician: Jerald Morales MD Referring Physician: Jerald Morales MD Allergies, Adverse Reactions, Alerts Substance Reaction [...] 04/07/19 15:09:00 EST, Route to Pharmacy Electronically, [facility] #[id number], 175.26, cm, 04/07/19 14:43:00 EST, Height, 113.1, [...] 1 Refills, Maintenance, 04/07/19 15:10:00 EST, Tablet, [facility] #77413, 175.26, cm, 04/07/19 14:43:00 EST, Height, 113.1, [...] 12/14/18 15:51:46 EDT, Route to Pharmacy Electronically, NCPDP_[id number], [facility], Partial fill upon patient [...] 0 Refills, Maintenance, 06/15/19 9:39:00 EDT, Tablet, [facility]40515, 175.26, cm, 05/25/2009:52:00 EDT, Height, 113.1, kg, [...]
--- OUTSIDE RECORDS SUMMARY | 2022-07-19 20:14 | XMS_ITS | Continuity of Care Document ---
Author Name Unknown Organization [facility] ter Address [address] [place] [address]- Care Team Providers Care Resource Recovery Specialist Name Role Phone Es JOHNSON, Jerald Ibarra Primary Care Physician [phone] Encounter [facility] [place] Date(s): 10/10/21 - 12/11/[address] [address] Attending Physician: Tania Fuentes Admitting Physician: Tania Fuentes Referring Physician: Tania Fuentes Allergies, Adverse Reactions, Alerts Substance Reaction Severity Status Augmentin throat swelled age 2 Active Medications baclofen 10 mg oral tablet 10 mg, 1, tablet, By Mouth, 3 times a day, # 90 tablet, Refills 1, Tot. Refills 1, Maintenance, 04/07/19 15:09:00 EST, Route to Pharmacy Electronically, [facility] #[id number], 175.26, cm, 04/07/19 14:43:00 EST, Height, 113.1, [...] Date: 10/14/17 Status: Ordered Problem List Condition Confirmation Course Effective Dates Status Health St atus Informant Obese class II Confirmed Active Social History Social History Type Response Smoking Status Never smoker entered on: 09/23/17 Sex Male Patient Care team information Personnel Name: Es JOHNSON , Jerald Ibarra Address: Address: [address] [place] [address]
--- OUTSIDE RECORDS SUMMARY | 2022-07-19 20:14 | XMS_ITS | Continuity of Care Document ---
Author Name Unknown Organization [facility] ter Address [address] [place] [address]- Care Team Providers Care Software Integrator Name Role Phone Es JOHNSON, Jerald Ibarra Primary Care Physician Encounter [facility] [place] Date(s): 03/03/21 - 03/03/[address] [address]- Discharge Disposition: A-D/C Home Attending Physician: Ranjith Dolan MD Admitting Physician: Ranjith Dolan MD Referring Physician: Ranjith Dolan MD Allergies, Adverse Reactions, Alerts Substance Reaction Severity Status Augmentin throat swelled age 2 Active Medications acetaminophen-oxyCODONE 325 mg-5 mg oral tablet 2, tablet, By Mouth, Every 4 hours, PRN, # 30 tablet, Refills 0, Tot. Refills 0, Acute, Pain , Moderate, 03/10/21 11:44:00 EST, 03/03/21 11:44:00 EST, Route to Pharmacy Electronically, [facility]t, Partial fill upon patient request... Start Date: 03/03/21 Stop Date: 03/10/21 Status: Ordered baclofen 10 mg oral tablet 10 mg, 1, tablet, By Mouth, 3 times a day, # 90 tablet, Refills 1, Tot. Refills 1, Maintenance, 04/07/19 15:09:00 EST, Route to Pharmacy Electronically, [facility] #[id number], 175.26, cm, 04/07/19 14:43:00 EST, Height, 113.1, [...] 1 Refills, Maintenance, 04/07/19 15:10:00 EST, Tablet, [facility] #78507, 175.26, cm, 04/07/19 14:43:00 EST, Height, 113.1, kg, 02/23/19 13:30:00 EST, Dry Weight Start Date: 04/07/19 Status: Ordered oxyCODONE 5 mg oral tablet 5 mg, 1, tablet, By Mouth, Every 6 hours, PRN, # 5 tablet, Refills 0, Tot. Refills 0, Maintenance, for pain, 12/14/18 15:51:46 EDT, Route to Pharmacy Electronically, NCPDP_[id number], [facility], Partial fill upon patient request Start Date: 12/14/18 Status: Ordered Paroxetine = 20 mg, By Mouth, Daily at bedtime, 0 Refills, Maintenance, 02/27/21 13:21:00 EST, Partial fill upon patient request if the prescription is for a schedule II opioid drug. Start Date: 02/27/21 Status: Ordered Percocet-5/325 325 mg-5 mg oral tablet 2 tablet, Tablet, By Mouth, Every 4 hours, May take less, PRN for Pain , Moderate, Routine, 03/03/21 12:14:00 EST Start Date: 03/03/21 Stop Date: 03/10/21 Status: Ordered Sumatriptan = 100 mg, By Mouth, PRN as needed for migraine headache, 0 Refills, Maintenance, 10/14/17 14:55:25 EDT Start Date: 10/14/17 Status: Ordered Problem List Condition Effective Dates Status Health Status Inform ant Obese class II(Confirmed) Active Procedures Procedure Date Related Diagnosis Body Site Status Laminectomy for implantation of neurostimulator electrodes, plate/paddle, epidural Completed Vital Signs Most recent to oldest [Reference Range]: 1 2 3 Height 175.26 cm (03/03/21 10:53 AM) 175.26 cm (02/27/21 1:51 PM) Weight 113.64 kg (03/03/21 10:53 AM) 113.64 kg (02/27/21 1:51 PM) Oxygen Saturation [94-100 %] 97 % (03/03/21 3:15 PM) 99 % (03/03/21 3:00 PM) 97 % (03/03/21 2:45 PM) Pulse Rate [55-90 bpm] 73 bpm (03/03/21 10:53 AM) Body Mass Index [18.5-24.99] 37 *>HHI* (03/03/21 10:53 AM) 37 *>HHI* (02/27/21 1:51 PM) Blood Pressure [90-138/55-84 mm Hg] 133/90mm Hg (03/03/21 3:15 PM) 133/90mm Hg (03/03/21 3:00 PM) 138/88mm Hg (03/03/21 2:45 PM) Respiratory Rate [16-30 br/min] 16 br/min (03/03/21 3:15 PM) 16 br/min (03/03/21 2:30 PM) 16 br/min (03/03/21 2:29 PM) Temperature [96.8-100.4 DegF] 97.0 DegF (03/03/21 3:15 PM) 97.0 DegF (03/03/21 1:46 PM) 98.5 DegF (03/03/21 10:53 AM) Liters per Minute 2 L/min (03/03/21 2:15 PM) 5 L/min (03/03/21 1:46 PM) Mode of Delivery (Oxygen) Room air (03/03/21 3:15 PM) Room air (03/03/21 3:00 PM) Room air (03/03/21 2:45 PM) Blood pressure sites Arm, right (03/03/21 3:15 PM) Arm, right (03/03/21 2:45 PM) Arm, right (03/03/21 2:30 PM) Temperature Route Temporal (03/03/21 3:15 PM) Temporal (03/03/21 1:46 PM) Temporal (03/03/21 10:53 AM) Dry Weight 113.64 kg (02/27/21 1:51 PM) Dry Weight Obtained Via Patient/family s tated (02/27/21 1:51 PM) Social History Social History Type Response Smoking Status Never smoker entered on: 09/23/17 Sex Male
--- OUTSIDE RECORDS SUMMARY | 2022-07-19 20:14 | XMS_ITS | Continuity of Care Document ---
Author Name Unknown Organization [facility] Jeannette sridhar Address [address] [place] [address] [address] [place] [address]- Care Team Providers Care Security Dispatcher Name Role Phone Es JOHNSON, Jerald Ibarra Primary Care Physician [phone] [place] [facility] [place] 10/19/19 [facility] [address] [place] [address]- [facility] Attending Physician: Admakhil, Angelo Admitting Physician: AdmtrAngelo Referring Physician: Admtr, Ar8 Allergies, Adverse Reactions, Alerts Substance Reaction Severity [...] 04/07/19 15:09:00 EST, Route to Pharmacy Electronically, [facility] #[id number], 175.26, cm, 04/07/19 14:43:00 EST, Height, 113.1, kg, 02/23/19 13:30:... Start Date: 04/07/19 Stop Date: 06/06/19 Status: Ordered Fioricet Tablet By Mouth, Every 4 hours, 0 Refills, Maintenance, 02/03/19 13:44:58 EST Start Date: 02/03/19 Status: Ordered nabumetone 750 mg oral tablet 2 tablet = 1,500 mg, By Mouth, Daily, # 60 tablet, 1 Refills, Maintenance, 04/07/19 15:10:00 EST, Tablet, [facility] #31838, 175.26, cm, 04/07/19 14:43:00 EST, Height, 113.1, [...] 12/14/18 15:51:46 EDT, Route to Pharmacy Electronically, NCPDP_[id number], [facility], Partial fill upon [...] 0 Refills, Maintenance, 06/15/19 9:39:00 EDT, Tablet, [facility] #29907, 175.26, cm, 05/25/2009:52:00 EDT, Height, 113.1, kg, [...]
--- OUTSIDE RECORDS SUMMARY | 2022-07-19 20:14 | XMS_ITS | Continuity of Care Document ---
Author Name Unknown Organization [facility] Address [address] [place] [address], [address] [place] [address]- Care Team Providers Care Binder Chainstitch Name Role Phone Es JOHNSON, Jerald Ibarra Primary Care Physician [phone] Encounter [facility] Date(s): 11/27/19 - 12/27/19 [facility] [address] [place] [address], [address] [place] [address]- [facility] Attending Physician: Admakhil, Angelo Admitting Physician: [...] 04/07/19 15:09:00 EST, Route to Pharmacy Electronically, [facility] #[id number], 175.26, cm, 04/07/19 14:43:00 EST, Height, 113.1, [...] 1 Refills, Maintenance, 04/07/19 15:10:00 EST, Tablet, [facility] #34965, 175.26, cm, 04/07/19 14:43:00 EST, Height, 113.1, [...] 12/14/18 15:51:46 EDT, Route to Pharmacy Electronically, NCPDP_[id number], [facility], Partial fill upon patient [...] 0 Refills, Maintenance, 06/15/19 9:39:00 EDT, Tablet, [facility], 175.26, cm, 05/25/2009:52:00 EDT, Height, 113.1, kg, [...]
--- OUTSIDE RECORDS SUMMARY | 2022-07-19 20:14 | XMS_ITS | Continuity of Care Document ---
Author Name Unknown Organization [facility] Jeannette sridhar Address [address] [place] [address] ve [address] [place] [address]- Care Team Providers Care Sr Solutions Consultant Name Role Phone Es JOHNSON, Jerald Ibarra Primary Care Physician [place] [facility] [place]18[place] 11/05/19 [facility] [address] [place] [address]- [facility] Attending Physician: Pacheco Doe MD Referring Physician: [...] 04/07/19 15:09:00 EST, Route to Pharmacy Electronically, [facility] #[id number], 175.26, cm, 04/07/19 14:43:00 EST, Height, 113.1, [...] 1 Refills, Maintenance, 04/07/19 15:10:00 EST, Tablet, [facility] #60348, 175.26, cm, 04/07/19 14:43:00 EST, Height, 113.1, [...] 12/14/18 15:51:46 EDT, Route to Pharmacy Electronically, NCPDP_[id number], [facility], Partial fill upon patient [...] 0 Refills, Maintenance, 06/15/19 9:39:00 EDT, Tablet, [facility]77163, 175.26, cm, 05/25/2009:52:00 EDT, Height, 113.1, kg, [...]
--- OUTSIDE RECORDS SUMMARY | 2022-07-19 20:14 | XMS_ITS | Continuity of Care Document ---
Author Name Unknown Organization [facility] Address [address] [place] [address] [address], [address] [place] [address]- Care Team Providers Care Boot Turner Name Role Phone Es JOHNSON, Jerald Ibarra Primary Care Physician [phone] [place] [facility] [place]21 - 10/22/21 [facility] [address] [place] [address] Drive, [address] [place] [address]- Allergies, Adverse Reactions, Alerts Substance Reaction Severity Status Augmentin throat swelled age 2 Active Medications baclofen 10 mg oral tablet 10 mg, 1, tablet, By Mouth, 3 times a day, # 90 tablet, Refills 1, Tot. Refills 1, Maintenance, 04/07/19 15:09:00 EST, Route to Pharmacy Electronically, [facility] #[id number], 175.26, cm, 04/07/19 14:43:00 EST, Height, 113.1, [...]
--- OUTSIDE RECORDS SUMMARY | 2022-07-19 20:14 | XMS_ITS | Continuity of Care Document ---
Author Name Unknown Organization [facility] Address [address] [place] [address], [address] [place] [address]- Care Team Providers Care House Decorator Name Role Phone Es JOHNSON, Jerald Ibarra Primary Care Physician Encounter [facility] [place] Date(s): 11/27/19 - 12/04/19 [facility] [address] [place] [address], [address] [place] [address]- [facility] Attending Physician: Stephanie Horner MD Allergies, Adverse Reactions, Alerts Substance Reaction [...] 04/07/19 15:09:00 EST, Route to Pharmacy Electronically, [facility][id number], 175.26, cm, 04/07/19 14:43:00 EST, Height, 113.1, [...] 1 Refills, Maintenance, 04/07/19 15:10:00 EST, Tablet, [facility] #32909, 175.26, cm, 04/07/19 14:43:00 EST, Height, 113.1, [...] 12/14/18 15:51:46 EDT, Route to Pharmacy Electronically, NCPDP_[id number], [facility], Partial fill upon patient request [...] 0 Refills, Maintenance, 06/15/19 9:39:00 EDT, Tablet, [facility] #89448, 175.26, cm, 05/25/2009:52:00 EDT, Height, 113.1, kg, [...]
--- OUTSIDE RECORDS SUMMARY | 2022-07-19 20:14 | XMS_ITS | Continuity of Care Document ---
Author Name Unknown Organization [facility] Jeannette sridhar Address [address] [place] [address] [address] [place] [address]- Care Team Providers Care Director Radio Name Role Phone Es JOHNSON, Jerald Ibarra Primary Care Physician [phone] Encounter [facility] Date(s): 10/06/19 - 11/05/19 [facility] [address] [place] [address]- [facility] Attending Physician: Angelo Meraz Admitting Physician: AdmtrAngelo Referring Physician: Admtr ArLyssa Allergies, Adverse Reactions, Alerts Substance Reaction Severity [...] 04/07/19 15:09:00 EST, Route to Pharmacy Electronically, [facility] #[id number], 175.26, cm, 04/07/19 14:43:00 EST, Height, 113.1, [...] 1 Refills, Maintenance, 04/07/19 15:10:00 EST, Tablet, [facility] #98937, 175.26, cm, 04/07/19 14:43:00 EST, Height, 113.1, [...] 12/14/18 15:51:46 EDT, Route to Pharmacy Electronically, NCPDP_[id number], [facility], Partial fill upon patient [...] 0 Refills, Maintenance, 06/15/19 9:39:00 EDT, Tablet, [facility][id number], 175.26, cm, 05/25/2009:52:00 EDT, Height, 113.1, kg, [...]
--- OUTSIDE RECORDS SUMMARY | 2022-07-19 20:14 | XMS_ITS | Continuity of Care Document ---
Author Name Unknown Organization [facility] Address [address] [place] [address]- Care Team Providers Care Project Internship Name Role Phone Es JOHNSON, Jerald Ibarra Primary Care Physician Encounter [facility] [place] Date(s): 07/18/19 - 08/17/19 [facility] [address] [place] [address] [facility] Attending Physician: Angelo Meraz Admitting Physician: Angelo Meraz Referring Physician: Angelo Meraz Allergies, Adverse Reactions, Alerts Substance Reaction Severity [...] 04/07/19 15:09:00 EST, Route to Pharmacy Electronically, [facility] #[id number], 175.26, cm, 04/07/19 14:43:00 EST, Height, 113.1, kg, 02/23/19 13:30:... Start Date: 04/07/19 Stop Date: 06/06/19 Status: Ordered Fioricet Tablet By Mouth, Every 4 hours, 0 Refills, Maintenance, 02/03/19 13:44:58 EST Start Date: 02/03/19 Status: Ordered nabumetone 750 mg oral tablet 2 tablet = 1,500 mg, By Mouth, Daily, # 60 tablet, 1 Refills, Maintenance, 04/07/19 15:10:00 EST, Tablet, [facility] #43876, 175.26, cm, 04/07/19 14:43:00 EST, Height, 113.1, [...] 12/14/18 15:51:46 EDT, Route to Pharmacy Electronically, NCPDP_[id number], [facility], Partial fill upon patient [...] 0 Refills, Maintenance, 06/15/19 9:39:00 EDT, Tablet, [facility] #77701, 175.26, cm, 05/25/2009:52:00 EDT, Height, 113.1, kg, [...]
--- OUTSIDE RECORDS SUMMARY | 2022-07-19 20:14 | XMS_ITS | Continuity of Care Document ---
Author Name Unknown Organization [facility] Address [address] [place] [address], [address] [place] [address]- Care Team Providers Care Receiving And Processing Supervisor Name Role Phone Es JOHNSON, Jerald Ibarra Primary Care Physician Encounter [facility] Date(s): 10/24/19 - 10/31/19 [facility] [address] [place] [address], [address] [place] [address]- [facility] Attending Physician: Stephanie Horner MD Referring Physician: Jerald Suggs NP Allergies, [...] 04/07/19 15:09:00 EST, Route to Pharmacy Electronically, [facility] #[id number], 175.26, cm, 04/07/19 14:43:00 EST, Height, 113.1, [...] 1 Refills, Maintenance, 04/07/19 15:10:00 EST, Tablet, [facility] #17585, 175.26, cm, 04/07/19 14:43:00 EST, Height, 113.1, [...] 12/14/18 15:51:46 EDT, Route to Pharmacy Electronically, NCPDP_[id number], [facility], Partial fill upon [...] 0 Refills, Maintenance, 06/15/19 9:39:00 EDT, Tablet, [facility] #29174, 175.26, cm, 05/25/2009:52:00 EDT, Height, 113.1, kg, [...] oldest [Reference Range]: 1 Height 175.26 cm (10/24/19 2:10 PM) Mode of Delivery (Oxygen) Room air (10/24/19 2:10 PM) Blood pressure sites Arm, right (10/24/19 2:10 PM) Temperature Route Temporal (10/24/19 2:10 PM) Weight Obtained Via Standing scale (10/24/19 2:10 PM) Social History Social History Type Response Smoking Status Never smoker entered on: 09/23/17 Sex Male
--- OUTSIDE RECORDS SUMMARY | 2022-07-19 20:14 | XMS_ITS | Continuity of Care Document ---
Author Name Unknown Organization [facility] Address [address] [place] [address]- Care Team Providers Care Operations Expert Name Role Phone Es JOHNSON, Jerald Ibarra Primary Care Physician [place] [facility] [place]29[place]19 - 12/29/19 [facility] [address] [place] [address] [facility] Attending Physician: Angelo Meraz Admitting Physician: AdmtrAngelo [...] 04/07/19 15:09:00 EST, Route to Pharmacy Electronically, [facility] #[id number], 175.26, cm, 04/07/19 14:43:00 EST, Height, 113.1, [...] 1 Refills, Maintenance, 04/07/19 15:10:00 EST, Tablet, [facility] #06768, 175.26, cm, 04/07/19 14:43:00 EST, Height, 113.1, [...] 12/14/18 15:51:46 EDT, Route to Pharmacy Electronically, NCPDP_[id number], [facility], Partial fill upon patient request [...] 0 Refills, Maintenance, 06/15/19 9:39:00 EDT, Tablet, [facility]87796, 175.26, cm, 05/25/2009:52:00 EDT, Height, 113.1, kg, [...]
--- OUTSIDE RECORDS SUMMARY | 2022-07-19 20:14 | XMS_ITS | Continuity of Care Document ---
Author Name Unknown Organization [facility] Address [address] [place] [address] [address], [address] [place] [address]- Care Team Providers Care Head Of Product Name Role Phone Jerald Suggs NP Primary Care Physician [phone] [place] [facility] [id number] Date(s): 05/26/19 - 06/28/19 [facility] [address] [place] [address] Drive, [address] [place] [address]- [facility] Attending Physician: Blanche MAX, Ranjith Lamb Referring Physician: Jerald Suggs NP Allergies, Adverse [...] 04/07/19 15:09:00 EST, Route to Pharmacy Electronically, [facility] #72624, 175.26, cm, 04/07/19 14:43:00 EST, Height, 113.1, kg, 02/23/19 13:30:... Start Date: 04/07/19 Stop Date: 06/06/19 Status: Ordered Fioricet Tablet By Mouth, Every 4 hours, 0 Refills, Maintenance, 02/03/19 13:44:58 EST Start Date: 02/03/19 Status: Ordered nabumetone 750 mg oral tablet 2 tablet = 1,500 mg, By Mouth, Daily, # 60 tablet, 1 Refills, Maintenance, 04/07/19 15:10:00 EST, Tablet, [facility] #68083, 175.26, cm, 04/07/19 14:43:00 EST, Height, 113.1, [...] 12/14/18 15:51:46 EDT, Route to Pharmacy Electronically, NCPDP_[id number], [facility], Partial fill upon patient [...] 0 Refills, Maintenance, 06/15/19 9:39:00 EDT, Tablet, [facility] #15794, 175.26, cm, 05/25/2009:52:00 EDT, Height, 113.1, kg, [...]
--- OUTSIDE RECORDS SUMMARY | 2022-07-19 20:14 | XMS_ITS | Continuity of Care Document ---
Author Name Unknown Organization [facility] Address [address] [place] [id number]- Care Team Providers Care Grader Marker Name Role Phone Es JOHNSON, Jerald Ibarra Primary Care Physician [phone] [place] [facility] [place]): [place]07/19 - 04/14/19 [facility] [address] [place] [phone]- [facility] Encounter Diagnosis Myofascial pain syndrome(Discharge Diagnosis) - 04/07/19 Lumbar radiculitis(Discharge Diagnosis) - 04/07/19 Attending Physician: Nehemias Lopez MD Referring Physician: Jerald Suggs NP Allergies, [...] 04/07/19 15:09:00 EST, Route to Pharmacy Electronically, [facility] #[id number], 175.26, cm, 04/07/19 14:43:00 EST, Height, 113.1, kg, 02/23/19 13:30:... Start Date: 04/07/19 Stop Date: 06/06/19 Status: Ordered Fioricet Tablet By Mouth, Every 4 hours, 0 Refills, Maintenance, 02/03/19 13:44:58 EST Start Date: 02/03/19 Status: Ordered nabumetone 750 mg oral tablet 2 tablet = 1,500 mg, By Mouth, Daily, # 60 tablet, 1 Refills, Maintenance, 04/07/19 15:10:00 EST, Tablet, [facility] #[id number], 175.26, cm, 04/07/19 14:43:00 EST, Height, 113.1, [...] 12/14/18 15:51:46 EDT, Route to Pharmacy Electronically, NCPDP_[id number], [facility], Partial fill upon [...] Diagnosis Diagnosis Type Effective Dates Health Status Clinical Service Informant Myofascial pain syndrome Discharge Diagnosis 04/07/19 Lumbar radiculitis Discharge Diagnosis 04/07/19 Vital Signs Most recent to oldest [Reference Range]: 1 Height 175.26 cm (04/07/19 2:43 PM) Weight 111.8 kg (04/07/19 2:43 PM) Oxygen Saturation [94-100 %] 98 % (04/07/19 2:43 PM) Pulse Rate [55-90 bpm] 91 bpm *H* (04/07/19 2:43 PM) Body Mass Index [18.5-24.99] 36.4 *>HHI* (04/07/19 2:43 PM) Blood Pressure [90-138/55-84 mm Hg] 148/ 84mm Hg *H* (04/07/19 2:43 PM) Temperature [96.8-100.4 DegF] 98.9 DegF (04/07/19 2:43 PM) Blood pressure sites Arm, left (04/07/19 2:43 PM) Temperature Route Temporal (04/07/19 2:43 PM) Social History Social History Type Response Smoking Status Never smoker entered on: 09/23/17 Sex Male
--- OUTSIDE RECORDS SUMMARY | 2022-07-19 20:14 | XMS_ITS | Continuity of Care Document ---
Author Name Unknown Organization [facility] Address [address] [place] [phone]- Care Team Providers Care Publications Inspector Name Role Phone Es JOHNSON, Jerald Ibarra Primary Care Physician [place] [facility] [place] 12[place]22/19 [facility] [address] [place] [address]- [facility] Attending Physician: Angelo Meraz Admitting Physician: AdmtrAngelo Referring Physician: Admtr, Ar8 [...] 04/07/19 15:09:00 EST, Route to Pharmacy Electronically, [facility] #[id number], 175.26, cm, 04/07/19 14:43:00 EST, Height, 113.1, [...] 1 Refills, Maintenance, 04/07/19 15:10:00 EST, Tablet, [email or web address] #[id number], 175.26, cm, 04/07/19 14:43:00 EST, Height, 113.1, [...] 12/14/18 15:51:46 EDT, Route to Pharmacy Electronically, NCPDP_[id number], [facility], Partial fill upon patient request [...] 0 Refills, Maintenance, 06/15/19 9:39:00 EDT, Tablet, [facility] #[id number], 175.26, cm, 05/25/2009:52:00 EDT, Height, 113.1, kg, [...]
--- OUTSIDE RECORDS SUMMARY | 2022-07-19 20:14 | XMS_ITS | Continuity of Care Document ---
Author Name Unknown Organization [facility] Address [address] [place] [address] [address], [address] [place] [address]- Care Team Providers Care Unemployment Insurance Director Name Role Phone Es JOHNSON, Jerald Ibarra Primary Care Physician [place] [facility] [place]19 [facility] [address] [place] [address] Drive, [address] [place] [address]- [facility] Attending Physician: Blanche MAX, Ranjith Lamb Allergies, Adverse Reactions, Alerts Substance Reaction Severity [...] 04/07/19 15:09:00 EST, Route to Pharmacy Electronically, [facility] #[id number], 175.26, cm, 04/07/19 14:43:00 EST, Height, 113.1, kg, 02/23/19 13:30:... Start Date: 04/07/19 Stop Date: 06/06/19 Status: Ordered Fioricet Tablet By Mouth, Every 4 hours, 0 Refills, Maintenance, 02/03/19 13:44:58 EST Start Date: 02/03/19 Status: Ordered nabumetone 750 mg oral tablet 2 tablet = 1,500 mg, By Mouth, Daily, # 60 tablet, 1 Refills, Maintenance, 04/07/19 15:10:00 EST, Tablet, [facility] #[id number], 175.26, cm, 04/07/19 14:43:00 EST, Height, 113.1, [...] 12/14/18 15:51:46 EDT, Route to Pharmacy Electronically, NCPDP_[id number], [facility], [...] 0 Refills, Maintenance, 06/15/19 9:39:00 EDT, Tablet, [facility] #[id number], 175.26, cm, 05/25/2009:52:00 EDT, Height, 113.1, kg, [...]
--- OUTSIDE RECORDS SUMMARY | 2022-07-19 20:14 | XMS_ITS | Continuity of Care Document ---
Author Name Unknown Organization [facility] Address [address] [place] [address]- Care Team Providers Care Awning Craftsperson Name Role Phone Es JOHNSON, Jerald Ibarra Primary Care Physician [phone] Encounter 03/07/21 - 04/02/21 [facility] [address] [place] [address]- Discharge Disposition: GOALS MET Allergies, Adverse Reactions, Alerts Substance Reaction Severity Status Augmentin throat swelled age 2 Active Medications baclofen 10 mg oral tablet 10 mg, 1, tablet, By Mouth, 3 times a day, # 90 tablet, Refills 1, Tot. Refills 1, Maintenance, 04/07/19 15:09:00 EST, Route to Pharmacy Electronically, [facility] #[id number], 175.26, cm, 04/07/19 14:43:00 EST, Height, 113.1, [...]
--- OUTSIDE RECORDS SUMMARY | 2022-07-19 20:14 | XMS_ITS | Continuity of Care Document ---
Author Name Unknown Organization [facility] Address [address] [place] [address]- Care Team Providers Care Property Supervisor Name Role Phone Jerald Suggs NP Primary Care Physician Encounter [facility] [place] [id number] Date(s): 04/11/19 - 07/09/19 [facility] [address] [place] [address]- [facility] Attending Physician: Hannah MAX, Jason Malone Referring [...] 04/07/19 15:09:00 EST, Route to Pharmacy Electronically, [facility] #[id number], 175.26, cm, 04/07/19 14:43:00 EST, Height, 113.1, kg, 02/23/19 13:30:... Start Date: 04/07/19 Stop Date: 06/06/19 Status: Ordered Fioricet Tablet By Mouth, Every 4 hours, 0 Refills, Maintenance, 02/03/19 13:44:58 EST Start Date: 02/03/19 Status: Ordered nabumetone 750 mg oral tablet 2 tablet = 1,500 mg, By Mouth, Daily, # 60 tablet, 1 Refills, Maintenance, 04/07/19 15:10:00 EST, Tablet, [facility] #[id number], 175.26, cm, 04/07/19 14:43:00 EST, Height, 113.1, [...] 12/14/18 15:51:46 EDT, Route to Pharmacy Electronically, NCPDP_[id number], [facility], Partial fill upon [...] 0 Refills, Maintenance, 06/15/19 9:39:00 EDT, Tablet, [facility] #[id number], 175.26, cm, 05/25/2009:52:00 EDT, Height, 113.1, kg, [...]
--- OUTSIDE RECORDS SUMMARY | 2022-07-19 20:14 | XMS_ITS | Continuity of Care Document ---
Author Name Unknown Organization [facility] Address [address] [place] [address] [address], [address] [place] [address]- Care Team Providers Care Pet Ambassador Name Role Phone Es JOHNSON, Jerald Ibarra Primary Care Physician [phone] Encounter [facility] Date(s): 08/02/19 - 09/01/[address], [address] [place] [address]- [facility] Attending Physician: Admakhil, Angelo Admitting Physician: AdmtrAngelo [...] 04/07/19 15:09:00 EST, Route to Pharmacy Electronically, [facility] #[id number], 175.26, cm, 04/07/19 14:43:00 EST, Height, 113.1, kg, 02/23/19 13:30:... Start Date: 04/07/19 Stop Date: 06/06/19 Status: Ordered Fioricet Tablet By Mouth, Every 4 hours, 0 Refills, Maintenance, 02/03/19 13:44:58 EST Start Date: 02/03/19 Status: Ordered nabumetone 750 mg oral tablet 2 tablet = 1,500 mg, By Mouth, Daily, # 60 tablet, 1 Refills, Maintenance, 04/07/19 15:10:00 EST, Tablet, [facility][id number], 175.26, cm, 04/07/19 14:43:00 EST, Height, 113.1, [...] 12/14/18 15:51:46 EDT, Route to Pharmacy Electronically, NCPDP_[id number], [facility], Partial fill upon patient request [...] 0 Refills, Maintenance, 06/15/19 9:39:00 EDT, Tablet, [facility] #[id number], 175.26, cm, 05/25/2009:52:00 EDT, Height, 113.1, kg, [...]
[2022-07-19 20:16] LABS: INTERNATIONAL NORM RATIO 0.9 (0.9-1.1); Prothrombin Time 10.7 SEC (10.0-13.1)
--- NOTE | 2022-07-19 20:31 | PC.NURSE ---
Pt [id number]&Ox44, reports 4/10 intermittent substernal chest pain radiating to left sided collar bone and down into left arm. States pain feels like tightness . Pt placed on bedside monitor, HR 58 NSR, EKG obtained and reviewed by provider. IV line placed and blood work collected and sent to lab.
[2022-07-19 20:39] LABS: Alanine Aminotransferase 25 U/L (0-40); Albumin Level 4.5 g/dL (3.5-5.0); Alkaline Phosphatase 74 U/L (39-117); Anion Gap 13 (12-20); Aspartate Amino Transferase 39 U/L (5-37); Bilirubin Direct 0.1 mg/dL (0.0-0.5); Bilirubin Total 0.7 mg/dL (0.0-1.0); Blood Urea Nitrogen 15 mg/dL (9-16); Calcium 9.7 mg/dL (8.4-10.2); Carbon Dioxide 24 mmol/L (22-29); Chloride 105 mmol/L (96-108); Creatinine Clr Calc Pharmacy 126.1; Estimated Glomerular Filt Rate > 60; Glucose Random 78 mg/dL (60-115); Sodium 138 mmol/L (135-145); Total Protein 7.1 g/dL (6.5-8.0); Troponin-I High Sensitivity < 2.7 ng/L (<3.5-35.0)
[2022-07-19 20:41] LABS: SLIDE REVIEW VERIFIED
[2022-07-19 20:51] LABS: TSH reflex Free T4 3.74 uIU/mL (0.32-4.0)
[2022-07-19 21:51] LABS: D Dimer High Sensitivity < 150 NG/ML
== END 2022-07-19 23:41 | disposition home or self-care (01) ==
PROVIDERS: Physician Assistant; Emergency Provider Student in an Organized Health Care Education/Training Program; PCP Nurse Practitioner Family
DX: R07.89 Other chest pain (principal); R00.2 Palpitations; R06.02 Shortness of breath; Z79.899 Other long term (current) drug therapy
CPT/HCPCS: 36415; 71045; 80048; 80076; 83735; 84443; 84484; 85025; 85379; 85610; 93005; 99284; 99285

== ENCOUNTER 2022-07-20 13:31 | Outpatient (REF) | payer MEDICARE, OTHER, SELFPAY ==
[2022-07-20 14:30] LABS: MANUAL DIFF FLAG NO
[2022-07-20 15:11] LABS: Basophils Absolute Auto 0.1 X10*3/uL (0.0-0.2); Eosinophils Absolute Auto 0.1 X10*3/uL (0.0-0.4); Eosinophils Percent Auto 1.4 % (0-4); Hematocrit 42.2 % (42.0-52.0); Hemoglobin 14.1 g/dl (14.0-18.0); Imm Gran Abs Auto 0.04 X10*3/uL (0.00-0.03); Imm Gran Pct Auto 0.6 % (0.0-0.4); Lymphocytes Absolute Auto 3.3 X10*3/uL (1.2-4.9); Mean Corpuscular HGB Conc 33.4 g/dl (31.0-36.0); Mean Corpuscular Hemoglobin 30.3 pg (27.0-33.0); Mean Corpuscular Volume 90.6 fL (80.0-98.0); Mean Platelet Volume 10.7 fL (9.4-12.4); Monocytes Absolute Auto 0.6 X10*3/uL (0.1-1.2); Monocytes Percent Auto 7.8 % (2-11); Neutrophils Absolute Auto 3.1 x10*3/uL (2.0-8.3); Neutrophils Percent Auto 43.2 % (45-73); Platelet Count 332 X10*3/uL (160-400); Red Blood Count 4.66 X10*6/uL (4.60-5.80); Red Cell Distribution Width 13.3 % (11.0-16.0); White Blood Count 7.2 X10*3/uL (4.8-10.8)
[2022-07-20 15:28] LABS: B Type Natriuretic Peptide < 10 pg/mL (<100)
[2022-07-20 15:32] LABS: Alanine Aminotransferase 23 U/L (0-40); Albumin Level 4.3 g/dL (3.5-5.0); Alkaline Phosphatase 75 U/L (39-117); Anion Gap 10 (12-20); Aspartate Amino Transferase 35 U/L (5-37); Bilirubin Total 0.6 mg/dL (0.0-1.0); Blood Urea Nitrogen 14 mg/dL (9-16); Calcium 9.6 mg/dL (8.4-10.2); Carbon Dioxide 25 mmol/L (22-29); Chloride 108 mmol/L (96-108); Estimated Glomerular Filt Rate > 60; Glucose Random 97 mg/dL (60-115); Potassium 4.1 mmol/L (3.3-5.1); Rheumatoid Factor < 13.0 IU/mL (<15.0); Sodium 139 mmol/L (135-145); Total Protein 6.8 g/dL (6.5-8.0)
[2022-07-20 15:48] LABS: TSH reflex Free T4 1.75 uIU/mL (0.32-4.0)
[2022-07-20 15:58] LABS: Erythrocyte Sedimentation Rate 5 MM/HR (0-15)
[2022-07-22 15:18] LABS: Cyclic Citrullinated Peptide <16 UNITS
[2022-07-23 15:49] LABS: A. Phagocytphilium DNA,RT-PCR NOT DETECTED (NOT DETECTED); Babesia Microti DNA, RT-PCR NOT DETECTED (NOT DETECTED); Borrelia Miyamotoi,DNA RT-PCR NOT DETECTED (NOT DETECTED); E.Chaffeensis DNA RT-PCR NOT DETECTED (NOT DETECTED); Lyme(Borrelia ssp)DNA RT-PCR NOT DETECTED (NOT DETECTED)
[2022-07-24 14:28] LABS: Antibody to SS-A Antigen <1.0 NEG AI (<1.0 NEG); Antibody to SS-B Antigen <1.0 NEG AI (<1.0 NEG)
[2022-07-26 16:18] LABS: DNAds, Crithidia Antibody Negative (Negative)
[2022-07-27 15:14] LABS: Anti Nuclear Antibody Pattern Nuclear, Speckled; Anti Nuclear Antibody Screen POSITIVE (NEGATIVE); Anti Nuclear Antibody Titer 1:40 titer
== END 2022-07-20 13:32 | disposition home or self-care (01) ==
LOC: HO.HMGCLDS 13:31
PROVIDERS: PCP Nurse Practitioner Family; Visit Provider Nurse Practitioner Family
DX: R00.2 Palpitations (principal); R52 Pain, unspecified; R53.83 Other fatigue; R22.43 Localized swelling, mass and lump, lower limb, bilateral
CPT/HCPCS: 36415; 80053; 83880; 84443; 85025; 85652; 86038; 86039; 86140; 86200; 86235; 86255; 86431; 87798; 87801

== ENCOUNTER 2022-07-22 12:57 | Outpatient (REF) | payer MEDICARE, OTHER, SELFPAY ==
--- NOTE | ~2022-07-22 | CT_ITS ---
EXAMINATION: CT CHEST WITHOUT CONTRAST CLINICAL INFORMATION: Abnormal lung findings on diagnostic imaging. COMPARISON: Chest x-ray 07/19/2022. CT cervical spine 04/01/2022. TECHNIQUE: Multidetector volumetric CT imaging of the chest was done. Axial MIP volume rendering provided. Sagittal and coronal reformatted images were obtained. This CT examination was performed using dose optimization techniques as appropriate, variously including the following: *Automated exposure control. *Adjustment of mA and/or kV according to patient size (this includes techniques or standardized protocols for targeted exams where dose is matched to indication/reason for exam; i.e. extremities or head). *Use of iterative reconstruction technique. DLP: 245 mGy-cm FINDINGS: OVEN TENDER: Well expanded lungs. LUNGS: The lungs are well expanded and clear of acute pneumonic process. There is a 2 mm subpleural nodule right middle lobe, axial image 376/5, 2 mm nodule right lung apex image 84/5. There are scattered 1 mm calcified nodules in the lingula, right middle lobe and right upper lobe. A 3 mm nodule is seen in the right minor fissure on axial image 28/4 probably a lymph node. There is focal atelectatic changes in the lingula. MEDIASTINUM: The thyroid lobes are symmetrical and normal. The central trachea and the bronchi are widely patent. Heart size and the great vessels are normal caliber. No abnormal size mediastinal or hilar lymph nodes seen. CORONARY ARTERY CALCIFICATION: None visualized on this study. PLEURA: There is no pleural effusion. No pleural mass or thickening. AXILLA: There is no abnormal axillary lymph nodes. UPPER ABDOMEN: Visualized liver, spleen, pancreas and bilateral adrenal glands are unremarkable. No radiopaque gallstone seen. OSSEOUS STRUCTURES: No aggressive lytic or sclerotic process seen. There are neurostimulator in the posterior epidural space lower dorsal spine. CT/CT chest wo IV con IMPRESSION: 1. Scattered 1 to 2 mm calcified and noncalcified pulmonary nodules. Previously visualized 2 mm nodule right lung apex is stable. 2. No abnormal mediastinal or axillary lymph nodes seen. 3. No acute consolidation. There is focal atelectasis in the lingula. Fleischner guidelines were followed.
--- NOTE | 2022-07-22 13:42 | HM_ITS ---
Conclusion: 1. Patient was monitored for total period of 3 days and 15 minutes 2. Baseline was normal sinus with average heart of 81 beats per minute 3. Two pauses greater than 2.5 seconds noted with longest pause of 2.8 seconds happening at 06:11 am on day 2 4. No significant ectopy noted 5. Patient reported 6 events that correlated with sinus tachycardia with symptoms waiting from feeling dizzy and short of breath or chest pain or lightheaded episodes MTDD
== END 2022-07-22 12:58 | disposition home or self-care (01) ==
LOC: HO.CT 12:57
PROVIDERS: PCP Nurse Practitioner Family; Visit Provider Nurse Practitioner Family
DX: R00.2 Palpitations (principal); R93.89 Abnormal findings on diagnostic imaging of other specified body structures
CPT/HCPCS: 71250; 93242

== ENCOUNTER 2022-08-03 09:51 | Outpatient (REF) | payer MEDICARE, OTHER, SELFPAY ==
--- NOTE | 2022-08-03 10:50 | PFT_ITS ---
Forced vital capacity 112%, FEV1 118%, FEV1 over FVC ratio is 85. CWF65-84 139% and MVV 107%. Post bronchodilator therapy, there is no change. Total lung capacity 104%. Residual volume is 69%. DLCO 84%. CONCLUSION: 1. Normal pulmonary function test. 2. No evidence of obstructive and restrictive pulmonary disorder. 3. No response to bronchodilator therapy. 4. Reduced residual volume is probably due to extraneous obesity. Ana Muñoz MD MSB/MODL / [id number]
== END 2022-08-03 09:52 | disposition home or self-care (01) ==
LOC: HO.RESP 09:51
PROVIDERS: PCP Nurse Practitioner Family; Visit Provider Nurse Practitioner Family
DX: R06.02 Shortness of breath (principal); R39.89 Other symptoms and signs involving the genitourinary system
CPT/HCPCS: 94010; 94727; 94729

== ENCOUNTER → 2022-09-09 13:51 | Outpatient (REF) | payer MEDICARE, OTHER, SELFPAY ==
--- NOTE | 2022-09-09 13:54 | CA_ITS ---
Transthoracic Echocardiogram Patient (Last, First, Middle): Nahid De La Fuente T Gender: Male Date of : 1990 Age: 32 Procedure Date: 09/09/2022 Procedure Type: Transthoracic Echocardiogram Location: OP Height: 175.26 cm Weight: 113.4 kg BSA: 2.27 m2 Heart Rate: 56 bpm BP: 130 / 85 mmHg Materials Tech: CLARISSA Zafar MD: Jerald Suggs [facility] Branch Rental Manager: Rei Adkins MD Symptoms: R00.2 - Palpitations Study Quality: Fair ECG Rhythm: Bradycardia Conclusions: - Normal study Findings Left Ventricle Normal left ventricular size, thickness, and systolic function. The visually estimated ejection fraction is between 55-60%. Spectral Doppler is indicative of a normal filling pattern. Peak GLS is -22.2%, within normal limits. Right Ventricle Normal right ventricular cavity size and systolic function. Atria Both atria are normal in size. There is no evidence of interatrial shunt. Aortic Valve Normal aortic valve structure and function. There is no aortic valve stenosis. There is no aortic valve regurgitation. Mitral Valve Normal mitral valve structure and function. There is trace mitral valve regurgitation. There is no mitral valve stenosis. Pulmonic Valve The pulmonic valve is likely normal. Tricuspid Valve Normal tricuspid valve structure. There is trace tricuspid valve regurgitation. The right ventricular systolic pressure is normal. The right ventricular systolic pressure is 18 mmHg. Normal right atrial pressure. There is no evidence of pulmonary hypertension. Great Vessels All visible segments of the aorta are normal in size. The pulmonary artery was not well visualized. Venous The inferior vena cava is normal in size and collapses greater than 50% with inspiration. Pericardium/Pleural There is no evidence of pericardial effusion. Prior Study Comparison No significant change compared to prior study dated: 11/18/2018. Measurements 2D Linear Measurements IVSd: 0.94 0.6-0.9/0.6-1.0 cm LVIDd: 4.66 3.9-5.3/4.2-5.9 cm LVIDd Index: 2.05 2.4-3.2/2.2-3.1 cm/m2 LVIDs: 2.59 2.0-3.6 cm LVPWd: 1.03 0.7-1.1 cm LA Diam: 3.50 2.7-3.8/3.0-4.0 cm LAIDs Index: 1.54 1.5-2.3 cm/m2 LV Mass: 197.57 67-162/88-224 g LV Mass Index: 87.04 43-95/49-115 g/m2 LVOT Diam: 2.20 3.0+(-)1.3 cm 2D Systolic Function EF 4C: 54.80 >55% EF 2C: 53.60 >55% EF BiP: 54.90 >55% Mitral Valve MV Pk E: 0.89 MV PK A: 0.63 MV Decel Time: 209.00 E/A: 1.40 E'Lateral: 12.20 E'Medial: 8.92 E/E' Med: 10.00 E/E' Lat: 7.30 PHT: 61.00 MVA PHT: 3.61 Decel [place]: 4.27 Aortic Valve AoV Pk Rusty: 1.34 AoV Mn Rusty: 0.96 AoV VTI: 0.30 AoV Pk Grad: 7.00 Aov Mn Grad: 4.00 JORDANA Cont.VTI: 3.30 LVOT LVOT Pk Rusty: 1.27 LVOT Mn Rusty: 0.82 LVOT VTI: 0.26 LVOT Pk Grad: 6.00 LVOT Mn Grad: 3.00 LVOT Diam: 2.20 LVOT Area: 3.80 Diastolic Function MV Pk E: 0.89 MV Pk A: 0.63 E/A: 1.40 E'Medial: 8.92 E/E' Med: 10.00 E' Laterial: 12.20 E/E' Lat: 7.30 Right Ventricle TAPSE (mm): 23.40 TVS' Rusty: 13.60 Tricuspid Valve TR Pk Rusty: 1.94 TR Pk Grad: 15.00 RA Press: 3.00 RVSP: 18.00 Great Vessels Aorta Sinus of Valsalva: 3.80 2.0-3.5 cm Ao Asc: 3.20 2.1-3.4 cm Pulmonary Valve PV Pk Rusty: 1.34 Peak PV Grad: 7.00 Updated in Other Vendor System with Status of Final Rei Adkins MD electronically signed on 09/09/2022 3:24:41 PM with status of Final
== END ==
LOC: HO.CARD 13:51
PROVIDERS: PCP Nurse Practitioner Family; Visit Provider Nurse Practitioner Family
DX: R00.2 Palpitations (principal); I45.5 Other specified heart block
CPT/HCPCS: 93306; 93356

== ENCOUNTER 2022-11-19 08:00 | Outpatient (AMB) | payer MEDICARE, OTHER, SELFPAY ==
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
== END 2022-11-19 11:46 | disposition home or self-care (01) ==
LOC: HO.HMGC 08:00
PROVIDERS: PCP Nurse Practitioner Family; Visit Provider Nurse Practitioner Family
DX: K74.3 Primary biliary cirrhosis (principal)
CPT/HCPCS: 99441

== ENCOUNTER 2022-11-20 12:14 | Outpatient (REF) | payer MEDICARE, OTHER, SELFPAY ==
[2022-11-20 13:17] LABS: MANUAL DIFF FLAG NO
[2022-11-20 13:32] LABS: Basophils Absolute Auto 0.1 X10*3/uL (0.0-0.2); Eosinophils Absolute Auto 0.1 X10*3/uL (0.0-0.4); Eosinophils Percent Auto 1.4 % (0-4); Hematocrit 42.8 % (42.0-52.0); Hemoglobin 14.1 g/dl (14.0-18.0); Imm Gran Abs Auto 0.02 X10*3/uL (0.00-0.03); Imm Gran Pct Auto 0.3 % (0.0-0.4); Lymphocytes Absolute Auto 3.3 X10*3/uL (1.2-4.9); Lymphocytes Percent Auto 46.6 % (20-40); Mean Corpuscular HGB Conc 32.9 g/dl (31.0-36.0); Mean Corpuscular Hemoglobin 30.6 pg (27.0-33.0); Mean Corpuscular Volume 92.8 fL (80.0-98.0); Mean Platelet Volume 10.3 fL (9.4-12.4); Monocytes Absolute Auto 0.6 X10*3/uL (0.1-1.2); Monocytes Percent Auto 7.8 % (2-11); Neutrophils Percent Auto 42.9 % (45-73); Platelet Count 358 X10*3/uL (160-400); Red Blood Count 4.61 X10*6/uL (4.60-5.80); Red Cell Distribution Width 13.2 % (11.0-16.0); White Blood Count 7.1 X10*3/uL (4.8-10.8)
[2022-11-20 14:02] LABS: Gamma Glutamyl Transpeptidase 53 U/L (11-51)
[2022-11-20 14:16] LABS: TSH reflex Free T4 1.48 uIU/mL (0.32-4.0)
[2022-11-23 10:17] LABS: Carbohydrate Antigen 19-9 22 U/mL (<34)
[2022-11-23 11:39] LABS: Alpha Fetoprotein 2.4 ng/mL (<6.1)
[2022-11-24 14:43] LABS: Mitochondrial Antibodies NEGATIVE (NEGATIVE)
[2022-11-25 11:48] LABS: Smooth Muscle Antibody <20 U (<20)
[2022-11-27 13:58] LABS: Anti Nuclear Antibody Screen POSITIVE (NEGATIVE); Anti Nuclear Antibody Titer 1:40 titer
== END 2022-11-20 12:15 | disposition home or self-care (01) ==
LOC: HO.HMGCLDS 12:14
PROVIDERS: PCP Nurse Practitioner Family; Visit Provider Nurse Practitioner Family
DX: Z00.00 Encounter for general adult medical examination without abnormal findings (principal); K74.3 Primary biliary cirrhosis; R10.9 Unspecified abdominal pain; Z80.9 Family history of malignant neoplasm, unspecified
CPT/HCPCS: 36415; 82105; 82378; 82977; 84443; 85025; 86015; 86038; 86039; 86301; 86381

== ENCOUNTER 2022-12-14 16:27 | Outpatient (AMB) | payer MEDICARE, OTHER, SELFPAY ==
[2022-12-14 16:30] VITALS: BP 110/68; PULSE 71; O2SAT 98; BMI 37.4
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
== END 2022-12-14 17:19 | disposition home or self-care (01) ==
PROVIDERS: Visit Provider Nurse Practitioner Family
DX: Z00.00 Encounter for general adult medical examination without abnormal findings (principal); R76.8 Other specified abnormal immunological findings in serum; K74.3 Primary biliary cirrhosis; R07.89 Other chest pain
CPT/HCPCS: 99395

== ENCOUNTER 2023-02-08 13:45 | Outpatient (AMB) | payer MEDICARE, OTHER, SELFPAY ==
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
[2023-02-08 14:35] VITALS: BP 118/72; PULSE 83; TEMP 36.7; O2SAT 96; BMI 37.9
== END 2023-02-08 15:05 | disposition home or self-care (01) ==
PROVIDERS: PCP Nurse Practitioner Family; Visit Provider Emergency Medicine
DX: J06.9 Acute upper respiratory infection, unspecified (principal); J02.9 Acute pharyngitis, unspecified
CPT/HCPCS: 87880; 99213

== ENCOUNTER 2023-02-11 09:42 | Outpatient (AMB) | payer MEDICARE, OTHER, SELFPAY ==
[2023-02-11 09:44] VITALS: BP 110/70; PULSE 83; TEMP 36.9; O2SAT 98; BMI 37.4
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
== END 2023-02-11 10:57 | disposition home or self-care (01) ==
LOC: HO.HMGC 09:43
PROVIDERS: PCP Nurse Practitioner Family; Visit Provider Nurse Practitioner Family
DX: R06.2 Wheezing (principal); J98.9 Respiratory disorder, unspecified
CPT/HCPCS: 99213

== ENCOUNTER 2023-02-11 13:35 | Outpatient (REF) | payer MEDICARE, OTHER, SELFPAY ==
[2023-02-11 14:54] LABS: Influenza A PCR NEGATIVE (Negative); Influenza B PCR NEGATIVE (Negative); Resp Syncy Virus RNA Qual PCR NEGATIVE (Negative); SARS COV2 PCR INHOUSE NEGATIVE (Negative)
== END 2023-02-11 13:36 | disposition home or self-care (01) ==
LOC: HO.LNP 13:35
PROVIDERS: Visit Provider Nurse Practitioner Family
DX: Z11.52 Encounter for screening for COVID-19 (principal); J98.9 Respiratory disorder, unspecified; R06.2 Wheezing
CPT/HCPCS: 0241U

== ENCOUNTER 2023-02-16 10:53 | Outpatient (AMB) | payer MEDICARE, OTHER, SELFPAY ==
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
[2023-02-16 11:03] VITALS: BP 100/70; PULSE 85; O2SAT 98; BMI 37.9
== END 2023-02-16 11:49 | disposition home or self-care (01) ==
PROVIDERS: PCP Nurse Practitioner Family; Visit Provider Student in an Organized Health Care Education/Training Program
DX: R22.43 Localized swelling, mass and lump, lower limb, bilateral (principal)
CPT/HCPCS: 99203

== ENCOUNTER → 2023-02-16 10:53 | Outpatient (BNVA) | payer MEDICARE, OTHER, SELFPAY | PROVIDERS: PCP Nurse Practitioner Family; Visit Provider Student in an Organized Health Care Education/Training Program | DX: R22.43 Localized swelling, mass and lump, lower limb, bilateral (principal) | CPT/HCPCS: 99202 ==

== ENCOUNTER 2023-04-20 09:17 | Outpatient (REF) | payer MEDICARE, OTHER, SELFPAY ==
--- NOTE | ~2023-04-20 | XR_ITS ---
EXAMINATION: XR CHEST CLINICAL INFORMATION: Cough, unspecified COMPARISON: Chest 07/19/2022 TECHNIQUE: 2 views of the chest were obtained. FINDINGS: The lungs are well expanded. No focal consolidation, there is marked central peribronchial thickening which can be seen with bronchitis. No pleural effusion. No significant abnormality is noted involving the heart, mediastinum, bony thorax or soft tissues. Posterior stimulator device terminates at T8. XR/XR chest 2V IMPRESSION: No pneumonia. Marked central peribronchial thickening can be seen with bronchitis.
== END 2023-04-20 09:18 | disposition home or self-care (01) ==
LOC: HO.HMGCX 09:17
PROVIDERS: PCP Nurse Practitioner Family; Visit Provider Nurse Practitioner Family
DX: R05.9 Cough, unspecified (principal)
CPT/HCPCS: 71046

== ENCOUNTER 2023-05-11 15:02 | Outpatient (AMB) | payer MEDICARE, OTHER, SELFPAY ==
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
[2023-05-11 15:12] VITALS: BP 130/78; PULSE 75; TEMP 37.4; O2SAT 98; BMI 38.4
== END 2023-05-11 16:39 | disposition home or self-care (01) ==
PROVIDERS: PCP Nurse Practitioner Family; Visit Provider Nurse Practitioner Primary Care
DX: J18.9 Pneumonia, unspecified organism (principal)
CPT/HCPCS: 99214

== ENCOUNTER 2023-05-11 15:22 | Outpatient (REF) | payer MEDICARE, OTHER, SELFPAY | END 2023-05-11 15:23 | disposition home or self-care (01) | LOC: HO.LAB 15:22 | PROVIDERS: Visit Provider Nurse Practitioner Primary Care | DX: Z13.89 Encounter for screening for other disorder (principal) ==

== ENCOUNTER 2023-05-11 15:31 | Outpatient (REF) | payer MEDICARE, OTHER, SELFPAY ==
--- NOTE | ~2023-05-11 | XR_ITS ---
EXAMINATION: XR CHEST CLINICAL INFORMATION: Respiratory disorder COMPARISON: 07/22/[address], 04/22/2023 chest radiograph TECHNIQUE: 2 views of the chest were obtained. FINDINGS: Elizabeth remain bilaterally prominent, unchanged from 04/20/2023, representing interval change from July 2022. Heart, mediastinum and superior mediastinum and vascularity remain within normal limits. Mild retrocardiac increased markings, likely atelectasis. Spinal stimulation device again noted. XR/XR chest 2V IMPRESSION: Persistently enlarged elizabeth, adenopathy not excluded. CT recommended.
[2023-05-11 17:50] LABS: Influenza A PCR NEGATIVE (Negative); Influenza B PCR POSITIVE (Negative); Resp Syncy Virus RNA Qual PCR NEGATIVE (Negative); SARS COV2 PCR INHOUSE NEGATIVE (Negative)
== END 2023-05-11 15:32 | disposition home or self-care (01) ==
LOC: HO.HMGCX 15:31
PROVIDERS: PCP Nurse Practitioner Family; Visit Provider Nurse Practitioner Primary Care
DX: J06.9 Acute upper respiratory infection, unspecified (principal); J98.9 Respiratory disorder, unspecified; D72.829 Elevated white blood cell count, unspecified; Z91.89 Other specified personal risk factors, not elsewhere classified; Z11.52 Encounter for screening for COVID-19; Z20.828 Contact with and (suspected) exposure to other viral communicable diseases
CPT/HCPCS: 0241U; 71046

== ENCOUNTER 2023-05-19 14:02 | Outpatient (REF) | payer MEDICARE, OTHER, SELFPAY ==
--- NOTE | ~2023-05-19 | CT_ITS ---
EXAMINATION: CT CHEST WITH CONTRAST CLINICAL INFORMATION: Enlarged dayan seen on chest radiograph. COMPARISON: Chest radiograph 05/11/2023 and 07/19/[address] chest 07/22/2022. TECHNIQUE: Multidetector volumetric CT imaging of the chest was obtained after the administration of 65 mL of Omnipaque 350 intravenous contrast without immediate adverse reactions. Axial MIP volume rendering provided. Sagittal and coronal reformatted images were obtained. This CT examination was performed using dose optimization techniques as appropriate, variously including the following: *Automated exposure control *Adjustment of mA and/or kV according to patient size (this includes techniques or standardized protocols for targeted exams where dose is matched to indication/reason for exam; i.e. extremities or head) *Use of iterative reconstruction technique DLP: 213 mGy-cm FINDINGS: LUNGS: A few scattered punctate nodules are seen, unchanged from prior. The largest measures 3 mm in the lingula (5:109 compare prior 5:346). A perifissural lymph node is present in the minor fissure on the right measuring 3 mm, unchanged (5:92 compare prior 5:276) The lungs are otherwise clear with no evidence of inflammation or nodules. MEDIASTINUM: The mediastinum is normal. No mediastinal or hilar lymphadenopathy is seen. The pulmonary arteries do not appear enlarged. PLEURA: There is no pleural effusion. No pleural mass or thickening. AXILLA: No lymphadenopathy. UPPER ABDOMEN: Hepatic attenuation is decreased consistent with steatosis. Similar findings can be appreciated on the 07/22/2022 study. OSSEOUS STRUCTURES: Unremarkable. CT/CT chest w IV con IMPRESSION: 1. No evidence of hilar lymphadenopathy. 2. Stable punctate pulmonary nodules. 3. Hepatic steatosis. Fleischner guidelines were followed.
[2023-05-19] MEDS: iohexoL 350 MG/ML 100 ML INFUS..BTL IV (14:23)
== END 2023-05-19 14:03 | disposition home or self-care (01) ==
LOC: HO.CT 14:02
PROVIDERS: PCP Nurse Practitioner Family; Visit Provider Nurse Practitioner Family
DX: R91.8 Other nonspecific abnormal finding of lung field (principal); R93.89 Abnormal findings on diagnostic imaging of other specified body structures; R59.0 Localized enlarged lymph nodes
CPT/HCPCS: 71260; Q9967

== ENCOUNTER 2023-06-23 12:55 | Outpatient (AMB) | payer MEDICARE, OTHER, SELFPAY ==
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
== END 2023-06-23 13:56 | disposition home or self-care (01) ==
PROVIDERS: PCP Nurse Practitioner Family; Visit Provider Urology
DX: R39.12 Poor urinary stream (principal); R39.13 Splitting of urinary stream; Z13.9 Encounter for screening, unspecified
CPT/HCPCS: 99204

== ENCOUNTER → 2023-06-23 12:55 | Outpatient (BNVA) | payer MEDICARE, OTHER, SELFPAY | PROVIDERS: PCP Nurse Practitioner Family; Visit Provider Urology | DX: R39.12 Poor urinary stream (principal); R39.13 Splitting of urinary stream | CPT/HCPCS: 51798; 81003; 99202 ==

== ENCOUNTER 2023-06-24 08:50 | Outpatient (REF) | payer MEDICARE, OTHER, SELFPAY ==
[2023-06-24 10:11] LABS: MANUAL DIFF FLAG NO
[2023-06-24 10:23] LABS: Basophils Absolute Auto 0.1 X10*3/uL (0.0-0.2); Basophils Percent Auto 0.9 % (0-2); Eosinophils Absolute Auto 0.1 X10*3/uL (0.0-0.4); Eosinophils Percent Auto 1.2 % (0-4); Hematocrit 42.3 % (42.0-52.0); Hemoglobin 14.4 g/dl (14.0-18.0); Imm Gran Abs Auto 0.03 X10*3/uL (0.00-0.03); Imm Gran Pct Auto 0.4 % (0.0-0.4); Lymphocytes Percent Auto 44.7 % (20-40); Mean Corpuscular Hemoglobin 30.3 pg (27.0-33.0); Mean Corpuscular Volume 89.1 fL (80.0-98.0); Mean Platelet Volume 10.6 fL (9.4-12.4); Monocytes Absolute Auto 0.6 X10*3/uL (0.1-1.2); Monocytes Percent Auto 8.2 % (2-11); Neutrophils Percent Auto 44.6 % (45-73); Platelet Count 336 X10*3/uL (160-400); Red Blood Count 4.75 X10*6/uL (4.60-5.80); Red Cell Distribution Width 13.2 % (11.0-16.0); White Blood Count 6.7 X10*3/uL (4.8-10.8)
[2023-06-24 11:25] LABS: Alanine Aminotransferase 21 U/L (0-40); Albumin Level 4.4 g/dL (3.5-5.0); Alkaline Phosphatase 70 U/L (39-117); Anion Gap 11 (12-20); Aspartate Amino Transferase 33 U/L (5-37); Bilirubin Total 0.5 mg/dL (0.0-1.0); Blood Urea Nitrogen 14 mg/dL (9-16); Calcium 9.6 mg/dL (8.4-10.2); Carbon Dioxide 25 mmol/L (22-29); Chloride 109 mmol/L (96-108); Cholesterol 282 mg/dL (<200); Estimated Glomerular Filt Rate > 60; Glucose Fasting 98 mg/dL (60-99); HDL Cholesterol 42 mg/dL (>40); LDL Cholesterol Calculated 215 mg/dL (<100); Potassium 4.4 mmol/L (3.3-5.1); Sodium 141 mmol/L (135-145); Total Protein 7.3 g/dL (6.5-8.0); Triglycerides 125 mg/dL (<150)
[2023-06-24 11:40] LABS: TSH reflex Free T4 1.99 uIU/mL (0.32-4.0)
== END 2023-06-24 08:51 | disposition home or self-care (01) ==
LOC: HO.HMGCLDS 08:50
PROVIDERS: PCP Nurse Practitioner Family; Visit Provider Nurse Practitioner Family
DX: Z00.00 Encounter for general adult medical examination without abnormal findings (principal); Z13.220 Encounter for screening for lipoid disorders; Z13.29 Encounter for screening for other suspected endocrine disorder
CPT/HCPCS: 36415; 80053; 80061; 84443; 85025

== ENCOUNTER 2023-09-13 11:15 | Outpatient (REF) | payer MEDICARE, OTHER, SELFPAY ==
--- NOTE | ~2023-09-13 | US_ITS ---
EXAMINATION: US RETROPERITONEAL COMPLETE (RENAL) CLINICAL INFORMATION: Poor urinary stream. COMPARISON: Renal ultrasound with bladder 03/16/2019. TECHNIQUE: Real-time imaging of the kidneys and bladder. FINDINGS: RIGHT KIDNEY: 12.3 x 6.5 x 6.7 cm (SAG x AP x TRV). The kidney is normal in size, contour, and echogenicity. Renal cortical thickness is normal. No calculi or focal parenchymal lesions. No hydronephrosis. LEFT KIDNEY: 12.5 x 6.1 x 4.9 cm (SAG x AP x TRV). The kidney is normal in size, contour, and echogenicity. Renal cortical thickness is normal. No calculi or focal parenchymal lesions. No hydronephrosis. BLADDER: Well distended and normal. Bilateral ureteral jets are demonstrated. Prevoid bladder volume is 167 mL. Postvoid bladder volume is 20 mL. ADDITIONAL FINDINGS: The prostate is enlarged with a volume of 42 mL. US/US retroperitoneal comp IMPRESSION: 1. Normal appearance of the kidneys. 2. Small post void residual. 3. Enlarged prostate.
== END 2023-09-13 11:16 | disposition home or self-care (01) ==
LOC: HO.HMGCX 11:15
PROVIDERS: PCP Nurse Practitioner Family; Visit Provider Urology
DX: R39.12 Poor urinary stream (principal); R39.13 Splitting of urinary stream
CPT/HCPCS: 76770

== ENCOUNTER 2023-09-24 10:01 | Outpatient (AMB) | payer MEDICARE, OTHER, SELFPAY ==
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
== END 2023-09-24 11:04 | disposition home or self-care (01) ==
PROVIDERS: PCP Nurse Practitioner Family; Visit Provider Urology
DX: N40.1 Benign prostatic hyperplasia with lower urinary tract symptoms (principal); R39.12 Poor urinary stream; R39.13 Splitting of urinary stream
CPT/HCPCS: 99213

== ENCOUNTER → 2023-09-24 10:01 | Outpatient (BNVA) | payer MEDICARE, OTHER, SELFPAY | PROVIDERS: PCP Nurse Practitioner Family; Visit Provider Urology | DX: N40.1 Benign prostatic hyperplasia with lower urinary tract symptoms (principal); R39.12 Poor urinary stream; R39.13 Splitting of urinary stream | CPT/HCPCS: 81003; 99212 ==

== ENCOUNTER 2023-09-30 06:35 | Outpatient (REF) | payer MEDICARE, OTHER, SELFPAY ==
[2023-09-30 10:32] LABS: Alanine Aminotransferase 19 U/L (0-40); Albumin Level 4.4 g/dL (3.5-5.0); Alkaline Phosphatase 80 U/L (39-117); Anion Gap 13 (12-20); Aspartate Amino Transferase 31 U/L (5-37); Bilirubin Total 0.5 mg/dL (0.0-1.0); Blood Urea Nitrogen 13 mg/dL (9-16); Calcium 9.6 mg/dL (8.4-10.2); Carbon Dioxide 22 mmol/L (22-29); Chloride 108 mmol/L (96-108); Cholesterol 274 mg/dL (<200); Estimated Glomerular Filt Rate > 60; Glucose Fasting 100 mg/dL (60-99); HDL Cholesterol 41 mg/dL (>40); LDL Cholesterol Calculated 193 mg/dL (<100); Potassium 4.1 mmol/L (3.3-5.1); Sodium 139 mmol/L (135-145); Total Protein 7.1 g/dL (6.5-8.0); Triglycerides 201 mg/dL (<150)
== END 2023-09-30 06:36 | disposition home or self-care (01) ==
LOC: HO.HMGCLDS 06:35
PROVIDERS: PCP Nurse Practitioner Family; Visit Provider Nurse Practitioner Family
DX: E78.5 Hyperlipidemia, unspecified (principal)
CPT/HCPCS: 36415; 80053; 80061

== ENCOUNTER 2023-10-20 11:06 | Outpatient (REF) | payer MEDICARE, OTHER, SELFPAY ==
--- NOTE | ~2023-10-20 | CT_ITS ---
EXAMINATION: CT CHEST WITHOUT CONTRAST CLINICAL INFORMATION: Lung nodule COMPARISON: None available. TECHNIQUE: Multidetector volumetric CT imaging of the chest was done. Axial MIP volume rendering provided. Sagittal and coronal reformatted images were obtained. This CT examination was performed using dose optimization techniques as appropriate, variously including the following: *Automated exposure control *Adjustment of mA and/or kV according to patient size (this includes techniques or standardized protocols for targeted exams where dose is matched to indication/reason for exam; i.e. extremities or head) *Use of iterative reconstruction technique DLP: 228 mGy-cm FINDINGS: RETAIL GREETING CARD MERCHANDISER: Intrathecal device. Clear lungs. LUNGS: Trachea and bronchi are patent. Lingular atelectasis. Stable 3 mm lingular nodule, 7:332. Multiple scattered 2 mm or less pulmonary nodules again seen. MEDIASTINUM: Unremarkable thyroid. Nonspecific anterior mediastinal soft tissue density without mass or adenopathy, likely residual thymus. No pathologic lymphadenopathy. Nonenlarged heart. No pericardial effusion. Nonaneurysmal aorta. No pulmonary arterial enlargement. CORONARY ARTERY CALCIFICATION: None visualized on this study. PLEURA: There is no pleural effusion. No pleural mass or thickening. AXILLA: No lymphadenopathy. UPPER ABDOMEN: Diffuse hypoattenuation to the liver parenchyma. OSSEOUS STRUCTURES: Redemonstration spinal stimulation device. No suspicious osseous lesions CT/CT chest wo IV con IMPRESSION: 1. Stable 3 mm or less pulmonary nodules. 2. Hepatic steatosis. Fleischner guidelines were followed. Electronically signed by: Lashon Haro MD 11/16/2023 03:54 PM EDT
== END 2023-10-20 11:07 | disposition home or self-care (01) ==
LOC: HO.CT 11:06
PROVIDERS: PCP Nurse Practitioner Family; Visit Provider Nurse Practitioner Family
DX: R91.8 Other nonspecific abnormal finding of lung field (principal)
CPT/HCPCS: 71250

== ENCOUNTER 2023-12-30 14:20 | Outpatient (AMB) | payer MEDICARE, OTHER, SELFPAY ==
[2023-12-30 14:22] VITALS: BP 118/70; PULSE 72; O2SAT 98; BMI 36.5
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
== END 2023-12-30 15:36 | disposition home or self-care (01) ==
PROVIDERS: PCP Nurse Practitioner Family; Visit Provider Nurse Practitioner Family
DX: Z00.00 Encounter for general adult medical examination without abnormal findings (principal); R53.83 Other fatigue; G43.E09 Chronic migraine with aura, not intractable, without status migrainosus

== ENCOUNTER → 2023-12-30 14:20 | Outpatient (BNVA) | payer MEDICARE, OTHER, SELFPAY | PROVIDERS: PCP Nurse Practitioner Family; Visit Provider Nurse Practitioner Family | DX: Z00.01 Encounter for general adult medical examination with abnormal findings (principal); R53.83 Other fatigue; G43.E09 Chronic migraine with aura, not intractable, without status migrainosus | CPT/HCPCS: 96127; 99395 ==

== ENCOUNTER 2024-02-02 08:42 | Outpatient (AMB) | payer MEDICARE, OTHER, SELFPAY ==
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
[2024-02-02 08:49] VITALS: BP 120/84; PULSE 90; TEMP 37.3; O2SAT 97; BMI 36.2
== END 2024-02-02 12:30 | disposition home or self-care (01) ==
PROVIDERS: PCP Nurse Practitioner Family; Visit Provider Registered Nurse
DX: J06.9 Acute upper respiratory infection, unspecified (principal)

== ENCOUNTER 2024-02-02 08:42 | Outpatient (REF) | payer MEDICARE, OTHER, SELFPAY ==
[2024-02-02 13:18] LABS: Influenza A PCR NEGATIVE (Negative); Influenza B PCR NEGATIVE (Negative); Resp Syncy Virus RNA Qual PCR NEGATIVE (Negative); SARS COV2 PCR INHOUSE NEGATIVE (Negative)
== END 2024-02-02 08:43 | disposition home or self-care (01) ==
LOC: HO.LNP 08:42
PROVIDERS: PCP Nurse Practitioner Family; Visit Provider Registered Nurse
DX: J06.9 Acute upper respiratory infection, unspecified (principal)
CPT/HCPCS: 0241U; 99212

== ENCOUNTER → 2024-04-18 14:20 | Outpatient (BNV) | payer MEDICARE, OTHER, SELFPAY | PROVIDERS: PCP Nurse Practitioner Family; Visit Provider General Practice | DX: R91.8 Other nonspecific abnormal finding of lung field (principal) | CPT/HCPCS: 71250 ==

== ENCOUNTER 2024-05-31 06:56 | Outpatient (AMB) | payer MEDICARE, OTHER, SELFPAY ==
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
== END 2024-05-31 08:39 | disposition home or self-care (01) ==
LOC: HO.HMCC 06:57
PROVIDERS: PCP Nurse Practitioner Family; Visit Provider Nurse Practitioner Family
DX: F43.10 Post-traumatic stress disorder, unspecified (principal); G47.00 Insomnia, unspecified

== ENCOUNTER 2024-10-11 09:50 | Outpatient (REF) | payer MEDICARE, OTHER, SELFPAY ==
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
[2024-10-11 13:18] LABS: MANUAL DIFF FLAG NO
[2024-10-11 13:22] LABS: Appearance Urine Clear; Glucose Urine UA Negative (Negative); PH 7.0 (5.0-9.0); Specific Gravity - Urine 1.020 (1.005-1.025)
[2024-10-11 13:40] LABS: Hematocrit 45.9 % (42.0-52.0); Hemoglobin 15.1 g/dl (14.0-18.0); Imm Gran Abs Auto 0.02 X10*3/uL (0.00-0.03); Imm Gran Pct Auto 0.3 % (0.0-0.4); Lymphocytes Absolute Auto 2.7 X10*3/uL (1.2-4.9); Mean Corpuscular HGB Conc 32.9 g/dl (31.0-36.0); Mean Corpuscular Hemoglobin 30.4 pg (27.0-33.0); Mean Corpuscular Volume 92.4 fL (80.0-98.0); NRBC Abs Auto 0.000 X10*3/uL (0.0-0.012); NRBC Pct Auto 0.0 /100WBC (0.0-0.2); Platelet Count 334 X10*3/uL (160-400); Red Blood Count 4.97 X10*6/uL (4.60-5.80); White Blood Count 6.2 X10*3/uL (4.8-10.8)
[2024-10-11 14:21] LABS: Alanine Aminotransferase 30 U/L (0-40); Albumin Level 4.8 g/dL (3.5-5.0); Alkaline Phosphatase 68 U/L (39-117); Anion Gap 11 (12-20); Aspartate Amino Transferase 43 U/L (5-37); Blood Urea Nitrogen 13 mg/dL (9-16); Calcium 9.5 mg/dL (8.4-10.2); Carbon Dioxide 24 mmol/L (22-29); Chloride 108 mmol/L (96-108); Cholesterol 293 mg/dL (<200); Estimated Glomerular Filt Rate > 60; HDL Cholesterol 42 mg/dL (>40); Iron 120 mcg/dL (45-160); Percent Iron Saturation 40 % (15-50); Potassium 4.2 mmol/L (3.3-5.1); Sodium 139 mmol/L (135-145); Total Iron Binding Capacity 303 mcg/dL (228-428); Total Protein 7.5 g/dL (6.5-8.0); Triglycerides 166 mg/dL (<150); Unsaturated Iron Binding 183 ug/dL
[2024-10-11 14:24] LABS: Ferritin 73 ng/mL (20-250)
[2024-10-11 14:32] LABS: Prostate Specific Antigen 1.05 ng/mL (<0.05-4.0)
[2024-10-11 14:49] LABS: Folate 8.9 ng/mL (> or = 4.0); Vitamin B12 520 pg/mL (200-900)
[2024-10-12 09:48] LABS: Lyme Abs Screen <0.90 index
[2024-10-13 00:33] LABS: A. Phagocytphilium DNA,RT-PCR NOT DETECTED (NOT DETECTED); Babesia Microti DNA, RT-PCR NOT DETECTED (NOT DETECTED); Borrelia Miyamotoi,DNA RT-PCR NOT DETECTED (NOT DETECTED); E.Chaffeensis DNA RT-PCR NOT DETECTED (NOT DETECTED); Lyme(Borrelia ssp)DNA RT-PCR NOT DETECTED (NOT DETECTED)
== END 2024-10-11 09:51 | disposition home or self-care (01) ==
LOC: HO.HMGCLDS 09:50
PROVIDERS: PCP Nurse Practitioner Family; Referring Provider Urology; Visit Provider Nurse Practitioner Family
DX: Z00.01 Encounter for general adult medical examination with abnormal findings (principal); Z11.59 Encounter for screening for other viral diseases; N40.1 Benign prostatic hyperplasia with lower urinary tract symptoms; N41.1 Chronic prostatitis; R74.8 Abnormal levels of other serum enzymes; R53.83 Other fatigue
CPT/HCPCS: 36415; 80053; 80061; 81003; 82306; 82607; 82728; 82746; 83540; 84153; 84443; 85025; 86617; 86618; 87468; 87469; 87478; 87484; 87798

== ENCOUNTER 2024-10-13 15:42 | Outpatient (AMB) | payer MEDICARE, OTHER, SELFPAY ==
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
== END 2024-10-13 15:58 | disposition home or self-care (01) ==
LOC: HO.HUSH 15:42
PROVIDERS: PCP Nurse Practitioner Family; Visit Provider Urology
DX: N41.9 Inflammatory disease of prostate, unspecified (principal); N34.2 Other urethritis
CPT/HCPCS: 99214

== ENCOUNTER 2024-10-24 16:03 | Outpatient (AMB) | payer MEDICARE, OTHER, SELFPAY ==
[2024-10-24 16:31] VITALS: BP 114/78; PULSE 78; TEMP 36.8; O2SAT 97; BMI 38.1
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
== END 2024-10-24 17:00 | disposition home or self-care (01) ==
PROVIDERS: PCP Nurse Practitioner Family; Visit Provider Physician Assistant Medical
DX: R07.89 Other chest pain (principal)

== ENCOUNTER 2024-10-24 16:03 | Outpatient (REF) | payer MEDICARE, OTHER, SELFPAY ==
--- NOTE | ~2024-10-24 | XR_ITS ---
EXAMINATION: XR CHEST 2 VIEWS HISTORY: R05.9 - Cough, unspecified COMPARISON: Comparison is made with the prior examination dated 05/11/2023. FINDINGS: PA and lateral views of the chest are submitted. The lungs are expanded and clear. There is no pleural effusion, pneumothorax, or pulmonary vascular congestion. The heart is normal in size. The bones are intact. A spinal stimulator is again seen in place. XR/XR chest 2V IMPRESSION: No acute cardiopulmonary abnormality. Electronically signed by: Ranjith Padron MD 10/25/2024 07:17 AM EDT
== END 2024-10-24 16:04 | disposition home or self-care (01) ==
LOC: HO.HMGCX 16:03
PROVIDERS: PCP Nurse Practitioner Family; Referring Provider Physician Assistant Medical; Visit Provider Physician Assistant Medical
DX: R07.89 Other chest pain (principal); R05.9 Cough, unspecified; R20.0 Anesthesia of skin
CPT/HCPCS: 71046; 93005; 99212

== ENCOUNTER → 2024-10-24 16:53 | Outpatient (BNV) | payer MEDICARE, OTHER, SELFPAY | PROVIDERS: PCP Nurse Practitioner Family; Referring Provider Physician Assistant Medical; Visit Provider Radiology Diagnostic Radiology | DX: R07.9 Chest pain, unspecified (principal) | CPT/HCPCS: 71046 ==

== ENCOUNTER 2024-12-06 09:55 | Outpatient (REF) | payer MEDICARE, OTHER, SELFPAY ==
--- NOTE | ~2024-12-06 | US_ITS ---
EXAMINATION: US ABDOMEN COMPLETE CLINICAL INFORMATION: Abnormal levels of other serum enzymes. R74.8. COMPARISON: None available. TECHNIQUE: Real-time ultrasound of the abdomen using grayscale and color Doppler technique. FINDINGS: PANCREAS: No peripancreatic fluid collections. ABDOMINAL AORTA: The proximal, mid, and distal segments are normal in caliber. INFERIOR VENA CAVA: Visualized portions are normal. LIVER: Liver measures 17 cm. Echotexture is increased. There is no nodular surface contour. No solid or cystic lesion. No intrahepatic biliary ductal dilatation. GALLBLADDER: Fluid-filled without distention. No pericholecystic fluid collection or gallbladder wall thickening. COMMON BILE DUCT: 4 mm. RIGHT KIDNEY: 12 cm. Normal echotexture. Normal renal cortical thickness. No hydronephrosis. No solid or cystic lesion. LEFT KIDNEY: 12 cm. Normal echotexture. Normal renal cortical thickness. No hydronephrosis. No solid or cystic lesion.. SPLEEN: 11 cm. No focal lesion.. FREE FLUID: None. US/US abdomen complete IMPRESSION: Hepatomegaly and likely steatosis. No cholelithiasis or choledocholithiasis. No ascites. No hydronephrosis. Electronically signed by: Juan Sy MD 12/06/2024 11:17 AM EDT
== END 2024-12-06 09:56 | disposition home or self-care (01) ==
LOC: HO.HMGCX 09:55
PROVIDERS: PCP Nurse Practitioner Family; Visit Provider Nurse Practitioner Family
DX: R74.8 Abnormal levels of other serum enzymes (principal)
CPT/HCPCS: 76700

== ENCOUNTER → 2024-12-06 09:57 | Outpatient (BNV) | payer MEDICARE, OTHER, SELFPAY | PROVIDERS: PCP Nurse Practitioner Family; Visit Provider Radiology Diagnostic Radiology | DX: R16.0 Hepatomegaly, not elsewhere classified (principal) | CPT/HCPCS: 76700 ==

== ENCOUNTER 2025-01-01 10:04 | Outpatient (AMB) | payer MEDICARE, OTHER, SELFPAY ==
[2025-01-01 10:08] VITALS: BP 120/64; PULSE 76; RESP 16; TEMP 36.7; O2SAT 98; BMI 38.1
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
== END 2025-01-01 11:13 | disposition home or self-care (01) ==
LOC: HO.HMCC 10:04
PROVIDERS: PCP Nurse Practitioner Family; Visit Provider Nurse Practitioner Family
DX: K31.7 Polyp of stomach and duodenum (principal); R19.5 Other fecal abnormalities; R10.9 Unspecified abdominal pain

== ENCOUNTER → 2025-01-01 10:04 | Outpatient (BNVA) | payer MEDICARE, OTHER, SELFPAY | PROVIDERS: PCP Nurse Practitioner Family; Visit Provider Nurse Practitioner Family | DX: K31.7 Polyp of stomach and duodenum (principal); R10.30 Lower abdominal pain, unspecified; R19.5 Other fecal abnormalities | CPT/HCPCS: 96127; 99212 ==

== ENCOUNTER 2025-01-11 09:43 | Outpatient (REF) | payer MEDICARE, OTHER, SELFPAY ==
[2025-01-11 13:18] LABS: MANUAL DIFF FLAG NO
[2025-01-11 13:26] LABS: Hematocrit 44.5 % (42.0-52.0); Hemoglobin 14.6 g/dl (14.0-18.0); Imm Gran Abs Auto 0.03 X10*3/uL (0.00-0.03); Imm Gran Pct Auto 0.4 % (0.0-0.4); Lymphocytes Absolute Auto 3.2 X10*3/uL (1.2-4.9); Mean Corpuscular HGB Conc 32.8 g/dl (31.0-36.0); Mean Corpuscular Hemoglobin 30.3 pg (27.0-33.0); Mean Corpuscular Volume 92.3 fL (80.0-98.0); NRBC Abs Auto 0.000 X10*3/uL (0.0-0.012); NRBC Pct Auto 0.0 /100WBC (0.0-0.2); Platelet Count 359 X10*3/uL (160-400); Red Blood Count 4.82 X10*6/uL (4.60-5.80); White Blood Count 7.1 X10*3/uL (4.8-10.8)
[2025-01-11 13:50] LABS: Alanine Aminotransferase 29 U/L (0-40); Albumin Level 4.8 g/dL (3.5-5.0); Alkaline Phosphatase 77 U/L (39-117); Anion Gap 11 (12-20); Aspartate Amino Transferase 37 U/L (5-37); Blood Urea Nitrogen 16 mg/dL (9-16); Calcium 9.6 mg/dL (8.4-10.2); Carbon Dioxide 26 mmol/L (22-29); Chloride 107 mmol/L (96-108); Cholesterol 231 mg/dL (<200); Estimated Glomerular Filt Rate > 60; HDL Cholesterol 43 mg/dL (>40); Lipase 32 U/L (8-78); Potassium 4.3 mmol/L (3.3-5.1); Sodium 140 mmol/L (135-145); Total Protein 7.4 g/dL (6.5-8.0); Triglycerides 177 mg/dL (<150)
[2025-01-12 04:33] LABS: Hepatitis A Antibody IgM 0.17 Index (0-0.79); ~Hepatitis A Antibody IgM Nonreactive (Nonreactive)
[2025-01-12 04:56] LABS: HBS Num1 96.60 mIU/mL (0-7.99); HBc Num1 0.11 S/CO (0.00-0.79); HBsAGNum1 0.42 S/CO (0.00-0.99); Hepatitis B Surface Antigen Negative (Negative); ~HepC Num1 0.06 S/CO (0.00-0.79); ~Hepatitis B Surface Antibody REACTIVE (Nonreactive); ~Hepatitis C Antibody Nonreactive (Nonreactive)
[2025-01-15 22:54] LABS: Immunoglobulin A 187 mg/dL (47-310)
== END 2025-01-11 09:44 | disposition home or self-care (01) ==
LOC: HO.HMGCLDS 09:43
PROVIDERS: PCP Nurse Practitioner Family; Visit Provider Nurse Practitioner Family
DX: Z01.84 Encounter for antibody response examination (principal); R19.5 Other fecal abnormalities; R10.9 Unspecified abdominal pain; R74.8 Abnormal levels of other serum enzymes
CPT/HCPCS: 36415; 80053; 80061; 82784; 83690; 84443; 85025; 85652; 86015; 86140; 86364; 86381; 86704; 86706; 86709; 86803; 87340

== ENCOUNTER 2025-02-09 08:55 | Outpatient (AMB) | payer MEDICARE, OTHER, SELFPAY ==
[2025-02-09 09:05] VITALS: BP 112/60; PULSE 84; TEMP 36.6; O2SAT 98; BMI 37.8
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
== END 2025-02-09 09:45 | disposition home or self-care (01) ==
PROVIDERS: PCP Nurse Practitioner Family; Visit Provider Family Medicine
DX: L29.89 Other pruritus (principal)

== ENCOUNTER → 2025-02-09 08:55 | Outpatient (BNVA) | payer MEDICARE, OTHER, SELFPAY | PROVIDERS: PCP Nurse Practitioner Family; Visit Provider Family Medicine | DX: L29.89 Other pruritus (principal) | CPT/HCPCS: 99212 ==

== ENCOUNTER 2025-02-13 08:26 | Outpatient (AMB) | payer MEDICARE, OTHER, SELFPAY ==
[2025-02-13 08:30] VITALS: BP 123/73; PULSE 75; TEMP 36.6; O2SAT 97; BMI 38.1
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
== END 2025-02-13 08:56 | disposition home or self-care (01) ==
LOC: HO.HMCWIS 08:26
PROVIDERS: PCP Nurse Practitioner Family; Visit Provider Family Medicine
DX: R21 Rash and other nonspecific skin eruption (principal)

== ENCOUNTER → 2025-02-13 08:26 | Outpatient (BNVA) | payer MEDICARE, OTHER, SELFPAY | PROVIDERS: PCP Nurse Practitioner Family; Visit Provider Family Medicine | DX: R21 Rash and other nonspecific skin eruption (principal) | CPT/HCPCS: 99212 ==